=== PATIENT | male | born 1940 | race American Indian/Alaskan Native ===

== ENCOUNTER 2016-06-22 13:32 | Inpatient (IN) | payer OTHER, MEDICARE ==
[~2016-06-22] VITALS: Ht 188 cm; Wt 90.2 kg
[2016-06-22 16:00] VITALS: BP 148/94; PULSE 84; PULSE 86; RESP 20; TEMP 97.5; O2SAT 98
[2016-06-22 17:00] VITALS: PULSE 82
[2016-06-22] MEDS ORDERED: CHLORHEXIDINE GLUCONATE 4% SOLN 120 ML BTL TOPICAL SCH (17:00)
[2016-06-22] MEDS ORDERED: SODIUM CHLORIDE 0.9% FLUSH 5 ML FLUSH IV FLUSH PRN (17:00)
[2016-06-22] MEDS ORDERED: INSULIN REGULAR 100 UNITS in NS 100 ML IV SCH (17:00)
[2016-06-22 17:43] LABS: AUTOMATED NEUTROPHIL # 10.6 TH/MM3 (1.8-7.7); BASOPHIL % 0.2 % (0.0-2.0); EOSINOPHIL % 0.1 % (0.0-4.0); HEMO FLAGS DIFF FINAL; LYMPH % 4.4 % (9.0-44.0); LYMPHOCYTE # 0.5 TH/MM3 (1.0-4.8); MEAN CELL VOLUME 92.9 FL (80.0-100.0); MEAN CORPUSCULAR HGB CONC 33.4 % (32.0-36.0); MONO % 7.7 % (0.0-8.0); NEUT % 87.6 % (16.0-70.0); PLATELET COUNT 182 TH/MM3 (150-450); RED BLOOD COUNT 3.65 MIL/MM3 (4.50-5.90); RED CELL DISTRIBUTION WIDTH 13.8 % (11.6-17.2); WHITE BLOOD COUNT 12.1 TH/MM3 (4.0-11.0)
[2016-06-22 17:55] LABS: APTT (PATIENT) 23.7 SEC (24.3-30.1); PROTHROMBIN TIME - PATIENT 10.6 SEC (9.8-11.6)
[2016-06-22 18:00] VITALS: PULSE 85
[2016-06-22 18:06] LABS: ANION GAP 9 MEQ/L (5-15); BLOOD UREA NITROGEN 21 MG/DL (7-18); CHLORIDE 103 MEQ/L (98-107); GLOMERULAR FILTRATION RATE 58 ML/MIN (>89); POTASSIUM 4.1 MEQ/L (3.5-5.1); SODIUM (NA) 139 MEQ/L (136-145)
[2016-06-22 18:47] LABS: BLOOD, URINE NEG (NEG); COMMENT (UR) CULT NOT INDICATED; CULTURE IF INDICATED CULT NOT INDICATED; GLUCOSE,URINE 300 mg/dL (NEG); KETONE, URINE NEG (NEG); MUCUS URINE FEW /lpf (OCC); NITRITE,URINE NEG (NEG); URINE COLOR LIGHT-YELLOW (YELLW/STRAW)
[2016-06-22 19:00] VITALS: PULSE 77
[2016-06-22 21:15] VITALS: BP 122/66; PULSE 84; RESP 16; TEMP 98.1; O2SAT 97
--- NOTE | 2016-06-22 23:02 | RADRPT ---
EXAM DATE/TIME: 06/22/2016 18:58 [facility] COMPARISON: No previous studies available for comparison. INDICATIONS : Pre op cardiac surgery. MEDICAL HISTORY : Coronary artery disease. Peripheral vascular disease. Full medical history not available at this time . SURGICAL HISTORY : Multiple leg venous and arterial surgeries. ENCOUNTER: Initial ACUITY: 1 day PAIN SCORE: 0/10 LOCATION: Bilateral legs. TECHNIQUE: Venous ultrasound of the left and right leg was performed from the inguinal ligament to the proximal calf. Real-time, color Doppler and spectral tracing, compression and augmentation techniques were us ed. FINDINGS: RIGHT LEG: There is normal compressibility of the deep venous system from the inguinal region to the proximal ca lf. No echogenic clot is seen in the lumen of the common femoral, femoral, popliteal, and posterior tibial veins. There is a normal response of the venous system to proximal and distal augmentation an d respiration. LEFT LEG: There is normal compressibility of the deep venous system from the inguinal region to the proximal ca lf. No echogenic clot is seen in the lumen of the common femoral, femoral, popliteal, and posterior tibial veins. There is a normal response of the venous system to proximal and distal augmentation an d respiration. CONCLUSION: Normal examination. Gurpreet Velasquez MD on June 22, 2016 at 23:01 Board Certified Radiologist. This report was verified electronically.
--- NOTE | 2016-06-22 23:03 | RADRPT ---
EXAM DATE/TIME: 06/22/2016 19:14 [facility] COMPARISON: No previous studies available for comparison. INDICATIONS : Pre op cardiac surgery. MEDICAL HISTORY : Coronary artery disease. Peripheral vascular disease. Full medical history not available at this time . SURGICAL HISTORY : Multiple leg venous and arterial surgeries. ENCOUNTER: Initial ACUITY: 1 day PAIN SCORE: 0/10 LOCATION: Bilateral legs. GREATER SAPHENOUS VEIN THIGH: PROXIMAL: Right Non-visualized Left Non-visualized MID: Right Non-visualized Left Non-visualized DISTAL: Right Non-visualized Left Non-visualized CALF: PROXIMAL: Right Non-visualized Left Non-visualized MID: Right Non-visualized Left Non-visualized DISTAL: Right Non-visualized Left Non-visualized FINDINGS: The greater saphenous veins have been surgically removed bilaterally. CONCLUSION: 1. Surgical removal of the greater saphenous veins. Gurpreet Velasquez MD on June 22, 2016 at 23:01 Board Certified Radiologist. This report was verified electronically.
--- NOTE | 2016-06-22 23:04 | RADRPT ---
EXAM DATE/TIME: 06/22/2016 19:33 [facility] COMPARISON: No previous studies available for comparison. INDICATIONS : Pre op cardiac surgery. MEDICAL HISTORY : Coronary artery disease. Peripheral vascular disease. Full medical history not available at this time . SURGICAL HISTORY : Multiple leg venous and arterial surgeries. ENCOUNTER: Initial ACUITY: 1 day PAIN SCORE: 0/10 LOCATION: Bilateral neck PEAK SYSTOLIC VELOCITIES (cm/sec): ICA/CCA RATIO: Right: 1.5 Left: 1.2 ICA: Right: 81 Left: 89 CCA: Right: 61 Left: 75 ECA: Right: 201 Left: 110 VERTEBRAL: Right: 34 antegrade Left: 51 antegrade Elevated flow velocities and ICA/CCA ratios have been found to correlate with increased degrees of vessel stenosis, calculated as percentage of diameter relative to a normal segment of distal ICA/CCA FINDINGS: RIGHT CAROTID: No significant stenosis is visualized. The waveforms are within normal limits. LEFT CAROTID: No significant stenosis is visualized. The waveforms are within normal limits. VERTEBRAL ARTERIES: Antegrade flow is seen in both vertebral arteries. MISCELLANEOUS: None. CONCLUSION: 1. There is mild to moderate calcified plaque formation near the carotid bifurcations bilaterally. No hemodynamically significant stenosis is identified. Vertebral artery flow is antegrade bilaterally. Gurpreet Velasquez MD on June 22, 2016 at 23:02 Board Certified Radiologist. This report was verified electronically.
[2016-06-23] VITALS (21 sets, daily range): BP systolic 124–168; BP diastolic 72–86; PULSE 71–100; RESP 16–20; TEMP 97.3–98.1; O2SAT 95–99
[2016-06-23] MEDS ORDERED: LOSA100T PO (01:22)
[2016-06-23] MEDS ORDERED: PLAV75TA29 PO (01:22)
[2016-06-23] MEDS ORDERED: ZOLP5TAB3 PO (01:22)
[2016-06-23] MEDS ORDERED: ASPI81CH37 CHEW (01:22)
[2016-06-23] MEDS: MUPIROCIN 2% OINT 22 GM TUBE EACH NARE SCH ×2 (09:15→21:00)
[2016-06-23] MEDS: SODIUM CHLORIDE 0.9% FLUSH 5 ML FLUSH IV FLUSH SCH ×2 (09:15→21:27)
[2016-06-23 11:31] LABS: HEMOGLOBIN A1a 1.2 %; HEMOGLOBIN A1b 2.1 %; HEMOGLOBIN Ao 82.5 %; HEMOGLOBIN LA1C 2.4 %; HEMOGLOBIN P3 5.9 %
[2016-06-23] MEDS ORDERED: DIFLUPREDNATE RIGHT EYE SCH (13:00)
[2016-06-23] MEDS ORDERED: PILL SPLITTER OTHER PRN (13:15)
[2016-06-23] MEDS ORDERED: GLUCAGON 1 MG/ML VIAL OTHER PRN (13:45)
[2016-06-23] MEDS ORDERED: DEXTROSE 50% IN WATER 50 ML VIAL(D50) IV PUSH PRN (13:45)
[2016-06-23] MEDS: MOXIFLOXACIN 0.5% OPHT SOLN 3 ML BTL RIGHT EYE SCH ×3 (14:00→21:26)
--- NOTE | 2016-06-23 14:26 | MH ---
cc: NICOLE CHOWDHURY MD DATE OF ADMISSION: 06/22/2016 DATE OF : 1940 HISTORY OF PRESENT ILLNESS A 75-year-old male, patient of Dr. Nobles, who presented to [facility] with midsternal chest pain, non-radiating, associated with shortness of breath, no nausea or vomiting, off and on for about a week. He was ruled in for apparently a STEMI. They took him directly to the hospital laboratory technician per Dr. Patel showing some multivessel disease. The complete report is pending. The patient is currently pain free. He has significant risk factors including peripheral arterial disease, diabetes mellitus, hypertension and age. PAST MEDICAL HISTORY 1. COPD. 2. Diabetes, diet-controlled. 3. Peripheral arterial disease with multiple procedures. 4. Hyperlipidemia. 5. Hypertension. 6. Benign prostatic hypertrophy. 7. History of DVT. PAST SURGICAL HISTORY 1. Multiple peripheral surgeries, approximately seven, angioplasties, stents, initially by Dr. Rodriguez and then by Dr. Jaya Rondon. 2. First, second and fifth toe removed from the right foot. 3. Stents in his lower extremities. He has an extensive scar on his right thigh lower leg medially and also anteriorly. He uses a walker and a cane to ambulate. ALLERGIES The patient has no known allergies. MEDICATIONS 1. Symbicort b.i.d. 2. Durezol eye drops. 3. Vigamox eye drops. 4. Plavix 75; last dose yesterday morning. 5. Aspirin 81 mg daily. 6. Losartan 100 mg daily. FAMILY HISTORY Father from stomach cancer in his 40s. Mother from Alzheimer's in her 80s. SOCIAL HISTORY The patient is with two children. No alcohol. Smoked for approximately 40 years, 1-2 packs. No illicit drugs. REVIEW OF SYSTEMS GENERAL: No night sweats, fever, heat or cold intolerance. SKIN: No psoriasis, itching or hives. HEENT: No blurred vision or hearing loss. RESPIRATORY: Positive for cough that he has had off and on, he says for about a year, probable underlying chronic bronchitis. Occasional wheezing. CARDIOVASCULAR: As above in the HPI. GENITOURINARY: No burning, frequency, urgency. PREFLIGHT INSPECTOR: No history of TIA, CVA, seizure disorder. ENDOCRINE: Positive for diabetes. PHYSICAL EXAMINATION VITAL SIGNS: Blood pressure 150/70, heart rate 74, afebrile. GENERAL: Patient is awake, alert, in no acute distress. HEENT: Head is normocephalic, atraumatic. Pupils equal and reactive. Oral mucosa pink and moist. NECK: Supple. No JVD. HEART: Heart sounds S1, S2, regular rate and rhythm. No rubs, murmurs or gallops. LUNGS: End-expiratory wheeze. Few coarse breath sounds. ABDOMEN: Soft, nontender. No masses or organomegaly. EXTREMITIES: Partial amputation of the first, second and fifth toe from his right foot. I am able to get Doppler pulses on the left posterior tibial and dorsalis pedis. He does have Doppler pulses on the right, however, they are weaker than the left. LABORATORY DATA Hemoglobin 11, hematocrit 34, white cell count 12, platelet count 182. Sodium 139, potassium 4.1, BUN 21, creatinine 1.21. INR 1.0. Urinalysis is unremarkable. IMAGING DATA Carotid ultrasound: Mild to moderate plaque formation in the carotid bifurcations. No significant stenosis. No evidence of DVT in the lower extremities. Surgical of the greater saphenous vein grafts on his ultrasound venous mapping of both lower extremities. IMPRESSION AND PLAN 1. This is a 75-year-old male status post ST-segment [place], status post heart catheterization with multivessel disease, also with severe peripheral arterial disease. Will need to be evaluated for use of targets for bypass grafting. In the meantime will continue to hold his Plavix, hold his angiotensin receptor adarsh, review his medications and start statin once we are able to find out what he is able to take at home. Will consult physical therapy for bedside walker. 2. COPD with an underlying cough. Will check sputum for Gram stain, C&S. Add nebulizer treatment. 3. Diabetes mellitus. Will place the patient on a diabetic diet. He has, however, diet-controlled at home. 4. Hypertension. Will start low-dose beta adarsh and will continue to follow. 5. Further plan per Dr. Nicole Chowdhury. Dictated by: ADELE Baum Nicole MOTA /12:02 PM /1:26 PM
[2016-06-23] MEDS: RESP: ALBUTEROL 2.5 MG/IPRATROPIUM 0.5 MG NEB (SCH) NEB ×2 (14:41→21:12)
--- NOTE | 2016-06-23 16:39 | RADRPT ---
EXAM DATE/TIME: 06/23/2016 16:25 [facility] COMPARISON: No previous studies available for comparison. INDICATIONS : Evaluate for pneumonia, pneumothorax, or any communicable disease. Pre op cardiac surgery. MEDICAL HISTORY : Coronary artery disease. Peripheral vascular disease. SURGICAL HISTORY : None. ENCOUNTER: Initial ACUITY: 1 day PAIN SCORE: 0/10 LOCATION: Bilateral chest FINDINGS: The heart size is normal. There is minimal increased density at the right base. There are mild bilate ral pleural effusions. These are seen on the lateral view. The bony structures are unremarkable. CONCLUSION: Small effusions. Josh Issa MD on June 23, 2016 at 16:37 Board Certified Radiologist. This report was verified electronically.
[2016-06-23] MEDS: BUDESONIDE-FORMOTEROL 160/4.5 MCG INHALER INH SCH ×2 (17:00→21:26)
[2016-06-23] MEDS: METOPROLOL TARTRATE 25 MG TAB PO SCH ×2 (17:03→21:26)
[2016-06-23] MEDS: NITROGLYCERIN 2% OINT 1 GM PACKET TOPICAL SCH (17:04)
[2016-06-23] MEDS: INSULIN NovoLIN REGULAR SUPPLEMENTAL SCALE SQ SCH ×2 (17:04→20:39)
[2016-06-23] MEDS: ZOLPIDEM TARTRATE 5 MG TAB PO PRN (22:42)
[2016-06-24] VITALS (25 sets, daily range): BP systolic 142–168; BP diastolic 74–90; PULSE 65–94; RESP 18–20; TEMP 97.9–98.2; O2SAT 96–97
[2016-06-24] MEDS: NITROGLYCERIN 2% OINT 1 GM PACKET TOPICAL SCH ×4 (05:36→18:00)
[2016-06-24] MEDS: INSULIN NovoLIN REGULAR SUPPLEMENTAL SCALE SQ SCH ×4 (05:36→21:00)
[2016-06-24] MEDS: RESP: ALBUTEROL 2.5 MG/3 ML NEB (PRN) NEB (05:47)
[2016-06-24 06:30] LABS: P2Y12 REACTION UNITS (PRU) 166 PRU (194-418)
[2016-06-24] MEDS: RESP: ALBUTEROL 2.5 MG/IPRATROPIUM 0.5 MG NEB (SCH) NEB ×3 (08:00→20:08)
[2016-06-24] MEDS: BUDESONIDE-FORMOTEROL 160/4.5 MCG INHALER INH SCH ×2 (08:59→21:28)
[2016-06-24] MEDS: MOXIFLOXACIN 0.5% OPHT SOLN 3 ML BTL RIGHT EYE SCH ×4 (08:59→21:28)
[2016-06-24] MEDS: ASPIRIN EC 81 MG TABEC PO SCH (08:59)
[2016-06-24] MEDS: METOPROLOL TARTRATE 25 MG TAB PO SCH ×2 (08:59→21:29)
[2016-06-24] MEDS: SODIUM CHLORIDE 0.9% FLUSH 5 ML FLUSH IV FLUSH SCH ×3 (09:00→21:29)
[2016-06-24] MEDS: MUPIROCIN 2% OINT 22 GM TUBE EACH NARE SCH ×2 (09:00→21:29)
--- NOTE | 2016-06-24 09:08 | EC ---
Study Study Date:06/23/2016 STUDY CONCLUSIONS SUMMARY - Left ventricle: The cavity size was normal. Wall thickness was increased in a pattern of mild LVH. There was concentric hypertrophy. Systolic function was moderately reduced. The estimated ejection fraction was in the range of 40% to 45%. Akinesis of the anteroseptal myocardium. - Aortic valve: Mild regurgitation. - Tricuspid valve: Mild regurgitation. If LV function is below 40, please consider prescribing an ACEI or ARB or document rationale for non-use. PROCEDURE DATA STUDY STATUS: Elective. Procedure: Transthoracic echocardiography. Image quality was good. Scanning was performed from the parasternal, apical, and subcostal acoustic windows. Study completion: The patient tolerated the procedure well. Transthoracic echocardiography. M-mode, complete 2D, complete spectral Doppler, and color Doppler. Height: Height: 74in. Weight: Weight: 197.6lb. Body mass index: BMI: 25.4kg/m^2. Body surface area: BSA: 2.16m^2. Patient status: Inpatient. CARDIAC ANATOMY LEFT VENTRICLE: The cavity size was normal. Wall thickness was increased in a pattern of mild LVH. There was concentric hypertrophy. Systolic function was moderately reduced. The estimated ejection fraction was in the range of 40% to 45%. Regional wall motion abnormalities: Akinesis of the anteroseptal myocardium. AORTIC VALVE: Probably trileaflet. Doppler: There was no stenosis. Mild regurgitation. Valve area: 2.83cm^2 (Vmax). Indexed valve area: 1.31cm^2/m^2 (Vmax). MITRAL VALVE: Mildly calcified annulus. Doppler: There was no evidence for stenosis. No significant regurgitation. Valve area by pressure half-time: 3.86cm^2. Indexed valve area by pressure half-time: 1.79cm^2/m^2. Peak gradient: 5mm Hg (D). LEFT ATRIUM: The atrium was normal in size. RIGHT VENTRICLE: The cavity size was normal. PULMONIC VALVE: Not well visualized. TRICUSPID VALVE: The valve appears to be grossly normal. Doppler: There was no evidence for stenosis. Mild regurgitation. Peak gradient: 47mm Hg (D). PERICARDIUM: There was no pericardial effusion. Patient weight: 197.6lb _Ejection fraction:_ 65-75% _Fractional shortening:_ 32% up to 5Kg 5-11.5Kg 11.6-22.9Kg 23-45Kg 45-57Kg Aortic Root 7-13 <17 13-22 17-27 17-27 LA diam 6-13 <23 24-38 33-47 37-40 RVID 10-17 7-15 7-15 7-18 8-17 LVIDd 12-22 <32 24-38 33-47 37-40 LVPW 2-4 3-6 5-7 6-8 7-8 IVS 2-4 3-6 5-7 6-8 7-8 BASIC MEASUREMENTS ADULT NORMAL Left ventricle LV internal dimension, ED, chordal 45.7 mm 43-52 level, PLAX LV internal dimension, ES, chordal 35.5 mm 23-38 level, PLAX Fractional shortening, chordal level, *22 % >29 PLAX LV posterior wall thickness, ED 11.3 mm IVS/LVPW ratio, ED 1 <1.3 Volume, ED, MOD, 1-plane 98 ml Volume, ES, MOD, 1-plane 52 ml Ejection fraction, MOD, 1-plane 47 % Stroke volume, MOD, 1-plane 46 ml Volume index, ED, MOD, 1-plane 45 ml/m^2 Volume index, ES, MOD, 1-plane 24 ml/m^2 Stroke index, MOD, 1-plane 21.3 ml/m^2 Ventricular septum Septal thickness, ED 11.3 mm Aortic valve Leaflet separation 19 mm 15-26 Left atrium Anterior-posterior dimension 37 mm Anterior-posterior dimension index 1.71 cm/m^2 <2.2 BASIC MEASUREMENTS ADULT NORMAL Aortic valve Leaflet separation 19 mm 15-26 Aorta Root diameter, ED 36 mm 20-37 DOPPLER MEASUREMENTS ADULT NORMAL Aortic valve Peak velocity, S 110 cm/s Valve area, Vmax 2.83 cm^2 Valve area index, Vmax 1.31 cm^2/m^2 Regurgitant velocity, ED 418 cm/s Regurgitant deceleration 4280 cm/s^2 Regurgitant pressure half-time 286 ms Regurgitant gradient, ED 70 mm Hg Mitral valve Peak E-wave velocity 110 cm/s Peak A-wave velocity 81.9 cm/s Pressure half-time 57 ms Peak gradient, D 5 mm Hg Peak E/A ratio 1.3 Valve area, pressure half-time 3.86 cm^2 Valve area index, pressure half-time 1.79 cm^2/m^2 Tricuspid valve Peak gradient, D 47 mm Hg Maximal inflow velocity 296 cm/s Systemic veins Estimated CVP 10 mm Hg Pulmonic valve Peak velocity, S 95 cm/s LEGEND: Mean values are shown as u=mean value. Asterisk (*) taylor values outside specified normal range. Prepared and signed by Rock Leal [id number]
--- NOTE | 2016-06-24 10:00 | PD.CAR.PN ---
CVT Progress Note Subjective/Hospital Course: 75/ male NSTEMI transferred from [facility] / multi vessel disease EF 40 % , Last dose of Plavix 06/22 PRU this am 166. For surgery Th or Thursday . Pt has hx severe PAD multi stents, vascular surgery ( including fem-pop bypass) amputation of right 1,2, 5 toes ( seen by Dr Rondon in past) no conduit in lower ext for grafting has chronic cough past 6-12 months, on inhalers at home PMH : severe PAD, HLP, HTN, recent cataract surgery, DM Type 11 diet controlled , CKD stage 11, COPD( FEV1 1.03) insomnia , chronic anemia 06/24 on ASA, BB , stain , nitro ECHO noted EF 40% mild MR AI, TR remain s chest pain free Objective: GENERAL: SKIN: Warm and dry. HEAD: Normocephalic. EYES: No scleral icterus. No injection or drainage. NECK: Supple, trachea midline. No JVD or lymphadenopathy. CARDIOVASCULAR: Regular rate and rhythm without murmurs, gallops, or rubs. doppler pulse both feet, left> right RESPIRATORY: few coarse breath sound, faint wheeze Breath sounds equal bilaterally. No accessory muscle use. GASTROINTESTINAL: Abdomen soft, non-tender, nondistended. MUSCULOSKELETAL: No cyanosis, or edema. BACK: Nontender without obvious deformity. No CVA tenderness. Vital Signs Date Time Temp Pulse Resp B/P Pulse Ox O2 Delivery O2 Flow Rate FiO2 06/24/16 08:00 97.9 85 20 154/90 97 06/24/16 07:00 73 06/24/16 06:00 70 06/24/16 05:00 72 06/24/16 04:00 97.9 82 18 154/85 96 06/24/16 04:00 68 06/24/16 03:00 72 06/24/16 02:00 76 06/24/16 01:00 72 06/24/16 00:00 98.1 78 18 145/89 96 06/24/16 00:00 65 06/23/16 23:00 76 06/23/16 22:00 72 06/23/16 21:14 98 21 06/23/16 21:00 72 06/23/16 20:00 97.7 77 20 144/83 96 06/23/16 20:00 71 06/23/16 19:00 74 06/23/16 18:00 94 06/23/16 17:00 82 06/23/16 16:00 82 06/23/16 15:00 87 06/23/16 15:00 97.3 83 20 168/86 99 06/23/16 14:45 97 Nasal Cannula 2.00 06/23/16 14:00 100 06/23/16 13:00 82 06/23/16 12:00 84 06/23/16 11:00 97.4 85 20 156/81 97 06/23/16 11:00 89 06/23/16 10:00 78 Labs: Laboratory Tests Test 06/24/16 05:30 Platelet Function P2Y12 React 166 PRU Units ([id number]) Result Diagram: 06/22/16 1726 06/22/16 1726 Telemetry: NSR (1) Coronary artery disease (2) NSTEMI (non-ST elevated myocardial infarction) Plan: ASA, statin , BB , nitro (3) COPD (chronic obstructive pulmonary disease) Plan: on symbicort , nebs , ezpap (4) Diabetes mellitus Plan: on diabetic diet , insulin sliding scale , HGB A1C 6.8 (5) PVD (peripheral vascular disease) Plan: on ASA, will need to resume plavix after surgery (6) Hyperlipemia Plan: on statin (7) Hypertension Plan: controlled, on BB , may need to add home cardizem (8) CKD (chronic kidney disease), stage II Plan: monitor closely, avoid nephrotoxins Lauren Juarez Jun 24, 2016 10:00
[2016-06-24] MEDS ORDERED: PRAV40TA2 PO (10:14)
[2016-06-24] MEDS ORDERED: DIFL0.0512 RIGHT EYE (10:14)
[2016-06-24] MEDS ORDERED: FLUT1SPR22 (10:14)
[2016-06-24] MEDS ORDERED: IPRASOL INH (10:14)
[2016-06-24] MEDS ORDERED: FERR325T PO (10:14)
[2016-06-24] MEDS ORDERED: SYMB160A INH (10:14)
[2016-06-24] MEDS ORDERED: TEMA30CA PO (10:14)
[2016-06-24] MEDS ORDERED: VENTAER INH (10:14)
[2016-06-24] MEDS ORDERED: HYDR-3516 PO (10:14)
[2016-06-24] MEDS ORDERED: VIGA0.5D RIGHT EYE (10:14)
[2016-06-24] MEDS ORDERED: STOO100C (10:14)
[2016-06-24] MEDS ORDERED: TRAZ100T5 PO (10:14)
[2016-06-24] MEDS ORDERED: ALBU0.08 NEB (10:14)
[2016-06-24] MEDS ORDERED: DILT-64 PO (10:14)
[2016-06-24] MEDS ORDERED: FAMO40TA PO (10:14)
[2016-06-24] MEDS: DIFLUPREDNATE RIGHT EYE SCH ×2 (14:00→21:29)
--- NOTE | 2016-06-24 14:40 | PD.CAR.PN ---
CVT Progress Note Subjective/Hospital Course: 75/ male NSTEMI transferred from [facility] / multi vessel disease EF 40 % , Last dose of Plavix 06/22 PRU this am 166. For surgery or Thursday . Pt has hx severe PAD multi stents, vascular surgery ( including fem-pop bypass) amputation of right 1,2, 5 toes ( seen by Dr Rondon in past) no conduit in lower ext for grafting has chronic cough past 6-12 months, on inhalers at home PMH : severe PAD, HLP, HTN, recent cataract surgery, DM Type 11 diet controlled , CKD stage 11, COPD( FEV1 1.03) insomnia , chronic anemia 06/24 on ASA, BB , stain , nitro ECHO noted EF 40% mild MR AI, TR remain s chest pain free sts data discussed with pt RISK SCORES About the STS Risk Calculator Procedure: CAB Only Risk of Mortality: 3.736% Morbidity or Mortality: 24.964% Long Length of Stay: 12.931% Short Length of Stay: 25.562% Permanent Stroke: 1.254% Prolonged Ventilation: 16.348% DSW Infection: 1.231% Renal Failure: 7.144% Reoperation: 8.4% Objective: Vital Signs Date Time Temp Pulse Resp B/P Pulse Ox O2 Delivery O2 Flow Rate FiO2 06/24/16 11:00 79 06/24/16 10:00 76 06/24/16 09:00 86 06/24/16 08:00 97.9 85 20 154/90 97 06/24/16 08:00 84 06/24/16 07:00 73 06/24/16 06:00 70 06/24/16 05:00 72 06/24/16 04:00 97.9 82 18 154/85 96 06/24/16 04:00 68 06/24/16 03:00 72 06/24/16 02:00 76 06/24/16 01:00 72 06/24/16 00:00 98.1 78 18 145/89 96 06/24/16 00:00 65 06/23/16 23:00 76 06/23/16 22:00 72 06/23/16 21:14 98 21 06/23/16 21:00 72 06/23/16 20:00 97.7 77 20 144/83 96 06/23/16 20:00 71 06/23/16 19:00 74 06/23/16 18:00 94 06/23/16 17:00 82 06/23/16 16:00 82 06/23/16 15:00 87 06/23/16 15:00 97.3 83 20 168/86 99 06/23/16 14:45 97 Nasal Cannula 2.00 Labs: Laboratory Tests Test 06/24/16 05:30 Platelet Function P2Y12 React 166 PRU Units ([id number]) Result Diagram: 06/22/16 1726 06/22/16 1726 (1) Coronary artery disease (2) NSTEMI (non-ST elevated myocardial infarction) Plan: ASA, statin , BB , nitro (3) COPD (chronic obstructive pulmonary disease) Plan: on symbicort , nebs , ezpap (4) Diabetes mellitus Plan: on diabetic diet , insulin sliding scale , HGB A1C 6.8 (5) PVD (peripheral vascular disease) Plan: on ASA, will need to resume plavix after surgery (6) Hyperlipemia Plan: on statin (7) Hypertension Plan: controlled, on BB , may need to add home cardizem (8) CKD (chronic kidney disease), stage II Plan: monitor closely, avoid nephrotoxins Lauren Juarez Jun 24, 2016 14:40
[2016-06-24] MEDS ORDERED: ceFAZolin 2 GM PREMIX 50 ML IV SCH (15:00)
[2016-06-24] MEDS ORDERED: METOPROLOL TARTRATE 25 MG TAB PO SCH (15:00)
[2016-06-24] MEDS ORDERED: CHLORHEXIDINE GLUCONATE 4% SOLN 120 ML BTL TOPICAL SCH (15:00)
[2016-06-24] MEDS ORDERED: CEFAZOLIN INJ 500 MG in SODIUM CHLORIDE 0.9% IRR BTL 500 ML IRRIGATION SCH (15:00)
[2016-06-24] MEDS ORDERED: SODIUM CHLORIDE 0.9% FLUSH 5 ML FLUSH IV FLUSH PRN (15:00)
[2016-06-24] MEDS ORDERED: PAPAVERINE INJ 60 MG, NITROGLYCERIN INJ 100 MCG, DILTIAZEM INJ 100 MG in SODIUM CHLORID... IRRIGATION SCH (15:00)
--- NOTE | 2016-06-24 15:25 | EKG ---
Date Performed: 06/23/2016 Time Performed: 14:05:06 PTAGE: 75 years EKG: Likely Sinus rhythm with very heavy baseline artifact preclude more precise rhythm diagnosis. Would recommend a repeat E KG could conclude atrial fibrillaion or atrial flutter. Abnormal ECG NO PREVIOUS TRACING DOCTOR: Howie Parisi Interpretating Date/Time 06/24/2016 15:24:20
[2016-06-24] MEDS ORDERED: DIFLUPREDNATE RIGHT EYE SCH (21:00)
[2016-06-24] MEDS: PRAVASTATIN SOD 40 MG TAB PO SCH (21:29)
[2016-06-24] MEDS: traZODone HCL 100 MG TAB PO SCH (21:29)
[2016-06-24] MEDS: ZOLPIDEM TARTRATE 5 MG TAB PO PRN (22:18)
[2016-06-25] VITALS (26 sets, daily range): BP systolic 123–150; BP diastolic 65–83; PULSE 59–96; RESP 18; TEMP 97.3–98.5; O2SAT 94–97
[2016-06-25] MEDS: INSULIN NovoLIN REGULAR SUPPLEMENTAL SCALE SQ SCH ×4 (05:55→21:00)
[2016-06-25] MEDS: NITROGLYCERIN 2% OINT 1 GM PACKET TOPICAL SCH ×4 (05:56→18:06)
[2016-06-25] MEDS: RESP: ALBUTEROL 2.5 MG/IPRATROPIUM 0.5 MG NEB (SCH) NEB ×3 (07:25→20:47)
[2016-06-25] MEDS: SODIUM CHLORIDE 0.9% FLUSH 5 ML FLUSH IV FLUSH SCH ×4 (09:00→21:50)
[2016-06-25] MEDS: MUPIROCIN 2% OINT 22 GM TUBE EACH NARE SCH ×2 (09:03→21:49)
[2016-06-25] MEDS: FERROUS SULFATE 325 MG (65 MG ELEMENTAL IRON) TAB PO SCH (09:03)
[2016-06-25] MEDS: MOXIFLOXACIN 0.5% OPHT SOLN 3 ML BTL RIGHT EYE SCH ×4 (09:04→21:46)
[2016-06-25] MEDS: BUDESONIDE-FORMOTEROL 160/4.5 MCG INHALER INH SCH ×2 (09:04→21:46)
[2016-06-25] MEDS: ASPIRIN EC 81 MG TABEC PO SCH (09:04)
[2016-06-25] MEDS: DIFLUPREDNATE RIGHT EYE SCH ×2 (09:05→21:46)
[2016-06-25] MEDS: METOPROLOL TARTRATE 25 MG TAB PO SCH ×2 (09:10→21:45)
--- NOTE | 2016-06-25 13:06 | PD.CAR.PN ---
CVT Progress Note Subjective/Hospital Course: 75/ male NSTEMI transferred from [facility] / multi vessel disease EF 40 % , Last dose of Plavix 06/22 PRU this am 166. For surgery or Thursday . Pt has hx severe PAD multi stents, vascular surgery ( including fem-pop bypass) amputation of right 1,2, 5 toes ( seen by Dr Rondon in past) no conduit in lower ext for grafting has chronic cough past 6-12 months, on inhalers at home PMH : severe PAD, HLP, HTN, recent cataract surgery, DM Type 11 diet controlled , CKD stage 11, COPD( FEV1 1.03) insomnia , chronic anemia 06/24 on ASA, BB , stain , nitro ECHO noted EF 40% mild MR AI, TR remain s chest pain free 06/25 pt remains pain free await PRU in am tentatively scheduled for surgery on Thursday Objective: GENERAL: SKIN: Warm and dry. HEAD: Normocephalic. EYES: No scleral icterus. No injection or drainage. NECK: Supple, trachea midline. No JVD or lymphadenopathy. CARDIOVASCULAR: Regular rate and rhythm without murmurs, gallops, or rubs. RESPIRATORY: Breath sounds equal bilaterally. No accessory muscle use. GASTROINTESTINAL: Abdomen soft, non-tender, nondistended. MUSCULOSKELETAL: No cyanosis, or edema. BACK: Nontender without obvious deformity. No CVA tenderness. Vital Signs Date Time Temp Pulse Resp B/P Pulse Ox O2 Delivery O2 Flow Rate FiO2 06/25/16 12:00 72 06/25/16 11:00 70 06/25/16 11:00 98.0 71 18 125/65 94 06/25/16 10:00 77 06/25/16 09:00 87 06/25/16 08:00 82 06/25/16 07:15 68 06/25/16 07:00 97.4 82 18 150/74 96 06/25/16 06:00 71 06/25/16 05:00 71 06/25/16 04:00 77 06/25/16 04:00 98.0 66 18 123/83 97 06/25/16 03:00 71 06/25/16 02:00 71 06/25/16 01:00 70 06/25/16 00:00 74 06/25/16 00:00 98.2 59 18 129/66 97 06/24/16 23:00 66 06/24/16 22:00 74 06/24/16 21:00 94 06/24/16 20:08 97 21 06/24/16 20:00 98.0 86 20 168/90 96 06/24/16 20:00 82 06/24/16 19:00 84 06/24/16 18:00 81 06/24/16 17:00 80 06/24/16 16:00 89 06/24/16 15:00 82 06/24/16 15:00 98.2 86 20 144/79 96 06/24/16 14:00 70 Result Diagram: 06/22/16 1726 06/22/16 172 Telemetry: NSR (1) Coronary artery disease Plan: for surgery on Thursday (2) NSTEMI (non-ST elevated myocardial infarction) Plan: ASA, statin , BB , nitro (3) COPD (chronic obstructive pulmonary disease) Plan: on symbicort , nebs , ezpap (4) Diabetes mellitus Plan: on diabetic diet , insulin sliding scale , HGB A1C 6.8 (5) PVD (peripheral vascular disease) Plan: on ASA, will need to resume plavix after surgery (6) Hyperlipemia Plan: on statin (7) Hypertension Plan: controlled, on BB , may need to add home cardizem (8) CKD (chronic kidney disease), stage II Plan: monitor closely, avoid nephrotoxins Lauren Juarez Jun 25, 2016 13:06
--- NOTE | 2016-06-25 19:59 | EKG ---
Date Performed: 06/24/2016 Time Performed: 21:47:30 PTAGE: 75 years EKG: Sinus rhythm with borderline 1st degree A-V block Possible septal infarct - age undetermined Possible left ventri cular hypertrophy Lateral ST-T changes Abnormal ECG PREVIOUS TRACING : 06/23/2016 14.05 Compared to prior tracing no significant change DOCTOR: Sneha Banks Interpretating Date/Time 06/25/2016 19:58:33
--- NOTE | 2016-06-25 20:14 | PD.ID.CON ---
History of Present Illness Service ID Consult Requested By Dr.Sohit Gan Reason for Consult Evaluation and Mment of pseudomonas in sputum ? tracheobronchitis. 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 Patient presented to [facility] with midsternal chest pain, non-radiating, associated with shortness of breath, no nausea or vomiting, off and on for about a week. He was ruled in for apparently a STEMI. Patient underwent a cardiac cath which showed with multivessel disease. Patient is currently being considered for CABG but due to his persistent cough a sputum was sent and grew Pseudomonas aeruginosa. ID is consulted to help evaluate and manage this. Patient reports he has had chronic cough with varying colors and amount of sputum over last few weeks. He was prescribed a Zpack by PCP with no response. He has been on Bactrim off and on in past but never Levaquin per daughter and patient in room. No fevers No chills Cough with yellowish pulido expectoration. No hemoptysis No h.o TB No occupational exposures. No family h/o lung diseases or TB. Review of Systems ROS Limitations: Poor Historian Past Family Social History Allergies: Coded Allergies: No Known Allergies (Unverified , 06/23/16) Past Medical History 1. COPD. 2. Diabetes, diet-controlled. 3. Peripheral arterial disease with multiple procedures. 4. Hyperlipidemia. 5. Hypertension. 6. Benign prostatic hypertrophy. 7. History of DVT. Past Surgical History 1. Multiple peripheral surgeries, approximately seven, angioplasties, stents, initially by Dr. Rodriguez and then by Dr. Jaya Rondon. 2. First, second and fifth toe removed from the right foot. 3. Stents in his lower extremities. He has an extensive scar on his right thigh lower leg medially and also anteriorly. He uses a walker and a cane to ambulate. Reported Medications Reported Meds & Active Scripts Active Reported Hydrocodone-Acetaminophen 5-325 mg Tab 1 Tab PO Q6H PRN Allergy Nasal Guy 24 Ho (Fluticasone Propionate (Nasal)) 50 Mcg/Act Spr 1 Guy NA DAILY Ferrous Sulfate 325 Mg Tab 325 Mg PO DAILY Famotidine 40 Mg Tab 40 Mg PO DAILY Diltiazem CD 24 HR 240 Mg Caper 240 Mg PO DAILY Albuterol Neb (Albuterol Sulfate) 2.5 Mg/3 Ml Neb 2.5 Mg NEB BID PRN Durezol Opth (Difluprednate Opth) 0.05% Emul 1 Drop RIGHT EYE BID Vigamox Opth Drops (Moxifloxacin Opth Drops) 0.5 % Soln 1 Drop RIGHT EYE BID Trazodone HCl 100 Mg Tab Tab PO HS PRN Pravastatin 40 Mg Tab 40 Mg PO DAILY Symbicort Inh (Budesonide/Formoterol Fumarate) 160-4.5 Mcg/Act Aero 2 Puff INH Q12HR Stool Softener (Docusate Sodium) 100 Mg Cap Duoneb (Ipratropium-Albuterol Neb) 0.5-2.5 Mg/3 Ml Neb 1 Nebule INH Q6HR NEB PRN Ventolin Hfa 18 GM Inh (Albuterol Sulfate) 90 Mcg/Act Aer 2 Puff INH TID Temazepam 30 Mg Cap 30 Mg PO HS PRN Plavix (Clopidogrel Bisulfate) 75 Mg Tab 75 Mg PO DAILY Zolpidem (Zolpidem Tartrate) 5 Mg Tab 5 Mg PO HS PRN Losartan (Losartan Potassium) 100 Mg Tab 100 Mg PO DAILY Aspirin Low Dose (Aspirin) 81 Mg Chew 81 Mg CHEW DAILY Active Ordered Medications Current Medications Medications (Trade) Dose Ordered Sig/Karolyn Route Start Time Stop Time Status Last Admin (NS Flush) 2 ml BID IV FLUSH 06/22/16 21:00 06/25/16 09:04 (NS Flush) 2 ml UNSCH PRN IV FLUSH 06/22/16 17:00 (Bactroban 2% Oint) 1 applic BID EACH NARE 06/22/16 21:00 06/26/16 20:59 06/25/16 09:03 (Symbicort 160-4.5 Inh) 2 puff Q12HR INH 06/23/16 14:00 06/25/16 09:04 (Vigamox 0.5% Opht Soln) 1 drop QID RIGHT EYE 06/23/16 14:00 06/25/16 18:06 (Ecotrin Ec) 81 mg DAILY PO 06/24/16 09:00 06/25/16 09:04 (Pill Splitter) 1 ea UNSCH PRN OTHER 06/23/16 13:15 (Nitroglycerin 2% Oint) 0.5 inch Q6HR TOPICAL 06/23/16 18:00 06/25/16 18:06 (Ambien) 5 mg HS PRN PO 06/23/16 13:45 06/24/16 22:18 (D50w (Vial) Inj) 25 ml UNSCH PRN IV PUSH 06/23/16 13:45 (Glucagon Inj) 1 mg UNSCH PRN OTHER 06/23/16 13:45 (Lopressor) 25 mg Q12HR PO 06/24/16 09:00 06/25/16 09:10 (Pravachol) 40 mg HS PO 06/24/16 21:00 06/24/16 21:29 (Desyrel) 100 mg HS PO 06/24/16 21:00 06/24/16 21:29 (Ferrous Sulfate) 325 mg DAILY PO 06/25/16 09:00 06/25/16 09:03 Patient Own Medication PT OWN MED: DUREZOL (DIFLUPREDNA... BID RIGHT EYE 06/24/16 14:00 06/25/16 09:05 (NS Flush) 2 ml BID IV FLUSH 06/24/16 21:00 (NS Flush) 2 ml UNSCH PRN IV FLUSH 06/24/16 15:00 Family History reviewed and NC to current ID problems. Social History The patient is with two children. No alcohol. Smoked for 40 plus years, 1-2 packs. No illicit drugs. 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 Physical Exam Vital Signs Vital Signs Date Time Temp Pulse Resp B/P Pulse Ox O2 Delivery O2 Flow Rate FiO2 06/25/16 18:00 91 06/25/16 17:00 80 06/25/16 16:00 79 06/25/16 15:00 97.3 77 18 142/74 97 06/25/16 15:00 78 06/25/16 14:00 77 06/25/16 13:00 75 06/25/16 12:00 72 06/25/16 11:00 70 06/25/16 11:00 98.0 71 18 125/65 94 06/25/16 10:00 77 06/25/16 09:00 87 06/25/16 08:00 82 06/25/16 07:15 68 06/25/16 07:00 97.4 82 18 150/74 96 06/25/16 06:00 71 06/25/16 05:00 71 06/25/16 04:00 77 06/25/16 04:00 98.0 66 18 123/83 97 06/25/16 03:00 71 06/25/16 02:00 71 06/25/16 01:00 70 06/25/16 00:00 74 06/25/16 00:00 98.2 59 18 129/66 97 06/24/16 23:00 66 06/24/16 22:00 74 06/24/16 21:00 94 Physical Exam GENERAL: This is a well-nourished, well-developed patient, in no apparent distress. SKIN: No rashes, ecchymoses or lesions. Cool and dry. HEAD: Atraumatic. Normocephalic. No temporal or scalp tenderness. EYES: Pupils equal round and reactive. Extraocular motions intact. No scleral icterus. No injection or drainage. ENT: Nose without bleeding, purulent drainage or septal hematoma. Throat without erythema, tonsillar hypertrophy or exudate. Uvula midline. Airway patent. NECK: Trachea midline. Supple, nontender, no meningeal signs. CARDIOVASCULAR: HS audible. RRR RESPIRATORY: Clear to auscultation. Breath sounds equal bilaterally. GASTROINTESTINAL: Abdomen soft, non-tender, nondistended. MUSCULOSKELETAL: Right great, 2nd and 3rd,5th toe s/p amputation with no active signs of infection. NEUROLOGICAL: Awake and alert. Grossly non focal Psych:cooperative IV line sites with no e.o infection. Laboratory Laboratory Tests Test 06/25/16 13:48 Procalcitonin LESS THAN 0.05 Date/Time Procedure Status Source Growth 06/23/16 23:15 Gram Stain - Final Resulted Sputum Expectorated Sputum 06/23/16 23:15 Sputum Culture - Preliminary Resulted Pseudomonas Aeruginosa Result Diagram: 06/22/16 1726 06/22/16 1726 Imaging Last Impressions Chest X-Ray 06/23/16 0000 Signed Impressions: Service Date/Time: Thursday, June 23, 2016 16:25 - CONCLUSION: Small effusions. Josh Issa MD Lower Extremity Ultrasound 06/22/16 0000 Signed Impressions: Service Date/Time: Wednesday, June 22, 2016 19:14 - CONCLUSION: 1. Surgical removal of the greater saphenous veins. Gurpreet Velasquez MD Carotid Artery Ultrasound 06/22/16 0000 Signed Impressions: Service Date/Time: Wednesday, June 22, 2016 19:33 - CONCLUSION: 1. There is mild to moderate calcified plaque formation near the carotid bifurcations bilaterally. No hemodynamically significant stenosis is identified. Vertebral artery flow is antegrade bilaterally. Gurpreet Velasquez MD Assessment and Plan Assessment and Plan Pseudomonas aeruginosa in sputum ? tracheobronchitis. Susceptibility pending. 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 PAD ST segment [place] s/p cardiac cath with multivessel disease. COPD stable. DM uncontrolled. HTN Recs: Start Levaquin oral will treat a short 3-5 day based on clinical response. Start Tobramycin nebulizations Check LFTs Procalcitonin low normal mild infection if at all. Follow cultures Follow clinically. Explained to patient that the treatment is in an attempt to reduce perioperative Vent associated pneumonias. I also explained that despite treating sometimes infections can occur but by treating we are reducing the organism burden and hence his chances of Pneumonia perioperatively. He reports he has recd Pneumococcal and Flu vaccine at [facility] in past. d/w RN d.w patients daughter and patient. Chetna Madera MD Jun 25, 2016 20:14 He reports he has recd Pneumococcal and Flu vaccine at [facility] in past. d/w RN d.w patients daughter and patient. Chetna Madera MD Jun 25, 2016 20:14
[2016-06-25] MEDS: PRAVASTATIN SOD 40 MG TAB PO SCH (21:45)
[2016-06-25] MEDS: traZODone HCL 100 MG TAB PO SCH (21:45)
[2016-06-25] MEDS: LEVOFLOXACIN 500 MG TAB PO SCH (21:49)
[2016-06-26] VITALS (27 sets, daily range): BP systolic 112–143; BP diastolic 58–85; PULSE 67–91; RESP 18–20; TEMP 97.6–98.5; O2SAT 96–99
[2016-06-26] MEDS: RESP: TOBRAMYCIN SULFATE 80 MG/2 ML NEB NEB SCH ×3 (00:07→19:19)
[2016-06-26] MEDS: ZOLPIDEM TARTRATE 5 MG TAB PO PRN (00:09)
[2016-06-26] MEDS: NITROGLYCERIN 2% OINT 1 GM PACKET TOPICAL SCH ×4 (05:22→17:20)
[2016-06-26] MEDS: INSULIN NovoLIN REGULAR SUPPLEMENTAL SCALE SQ SCH ×3 (05:23→16:00)
[2016-06-26 07:19] LABS: AUTOMATED NEUTROPHIL # 5.7 TH/MM3 (1.8-7.7); BASOPHIL % 0.6 % (0.0-2.0); EOSINOPHIL # 0.2 TH/MM3 (0-0.4); EOSINOPHIL % 2.7 % (0.0-4.0); HEMATOCRIT 33.8 % (39.0-51.0); HEMO FLAGS DIFF FINAL; LYMPH % 9.3 % (9.0-44.0); LYMPHOCYTE # 0.7 TH/MM3 (1.0-4.8); MEAN CELL VOLUME 91.4 FL (80.0-100.0); MEAN CORPUSCULAR HEMOGLOBIN 30.5 PG (27.0-34.0); MEAN CORPUSCULAR HGB CONC 33.4 % (32.0-36.0); MONO % 11.4 % (0.0-8.0); PLATELET COUNT 180 TH/MM3 (150-450); RED CELL DISTRIBUTION WIDTH 13.5 % (11.6-17.2); WHITE BLOOD COUNT 7.5 TH/MM3 (4.0-11.0)
[2016-06-26 07:30] LABS: P2Y12 REACTION UNITS (PRU) 228 PRU (194-418)
[2016-06-26 07:39] LABS: POTASSIUM 4.1 MEQ/L (3.5-5.1)
[2016-06-26 07:41] LABS: INDIRECT BILIRUBIN 0.5 MG/DL (0.0-0.8); TOTAL BILIRUBIN ADULT 0.7 MG/DL (0.2-1.0)
[2016-06-26] MEDS: RESP: ALBUTEROL 2.5 MG/IPRATROPIUM 0.5 MG NEB (SCH) NEB ×3 (07:58→19:19)
[2016-06-26] MEDS: SODIUM CHLORIDE 0.9% FLUSH 5 ML FLUSH IV FLUSH SCH ×3 (09:00→21:00)
[2016-06-26] MEDS: MUPIROCIN 2% OINT 22 GM TUBE EACH NARE SCH (09:08)
[2016-06-26] MEDS: FERROUS SULFATE 325 MG (65 MG ELEMENTAL IRON) TAB PO SCH (09:09)
[2016-06-26] MEDS: LEVOFLOXACIN 500 MG TAB PO SCH (09:09)
[2016-06-26] MEDS: METOPROLOL TARTRATE 25 MG TAB PO SCH (09:09)
[2016-06-26] MEDS: ASPIRIN EC 81 MG TABEC PO SCH (09:09)
[2016-06-26] MEDS: BUDESONIDE-FORMOTEROL 160/4.5 MCG INHALER INH SCH (09:10)
[2016-06-26] MEDS: MOXIFLOXACIN 0.5% OPHT SOLN 3 ML BTL RIGHT EYE SCH ×4 (09:11→21:00)
[2016-06-26] MEDS: DIFLUPREDNATE RIGHT EYE SCH ×2 (09:11→21:00)
--- NOTE | 2016-06-26 09:19 | RADRPT ---
EXAM DATE/TIME: 06/26/2016 08:55 [place] COMPARISON: No previous studies available for comparison. INDICATIONS : Evaluate for pneumonia, pneumothorax, and communicable disease. MEDICAL HISTORY : Coronary artery disease. SURGICAL HISTORY : None. ENCOUNTER: Subsequent ACUITY: 4 - 6 days PAIN SCORE: 0/10 LOCATION: Bilateral chest FINDINGS: The heart size is normal. There is mild increased density at the right base. The left lung is clear. No effusion is seen. CONCLUSION: Mild atelectasis or consolidation at the right base. Josh Issa MD on June 26, 2016 at 9:17 Board Certified Radiologist. This report was verified electronically.
--- NOTE | 2016-06-26 10:36 | PD.CAR.PN ---
CVT Progress Note Subjective/Hospital Course: 75/ male NSTEMI transferred from [facility] / multi vessel disease EF 40 % , Last dose of Plavix 06/22 PRU this am 166. For surgery or Thursday . 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 HEAD: Normocephalic. EYES: No scleral icterus. No injection or drainage. NECK: Supple, trachea midline. No JVD or lymphadenopathy. CARDIOVASCULAR: Regular rate and rhythm without murmurs, gallops, or rubs. RESPIRATORY: Breath sounds equal bilaterally. No accessory muscle use. lung sounds clear bilaterally GASTROINTESTINAL: Abdomen soft, non-tender, nondistended. MUSCULOSKELETAL: No cyanosis, or edema. BACK: Nontender without obvious deformity. No CVA tenderness. Vital Signs Date Time Temp Pulse Resp B/P Pulse Ox O2 Delivery O2 Flow Rate FiO2 06/26/16 10:00 77 06/26/16 09:00 82 06/26/16 08:00 86 06/26/16 07:59 98 21 06/26/16 07:00 67 06/26/16 07:00 97.9 77 20 129/85 96 06/26/16 06:00 88 06/26/16 05:00 85 06/26/16 04:00 86 06/26/16 04:00 98.5 82 18 137/74 97 06/26/16 03:00 83 06/26/16 02:00 86 06/26/16 01:00 84 06/26/16 00:08 97 06/26/16 00:00 82 06/26/16 00:00 98.1 88 18 132/72 97 06/25/16 23:00 84 06/25/16 22:00 96 06/25/16 21:00 86 06/25/16 20:47 96 21 06/25/16 20:00 98.5 94 18 136/75 97 06/25/16 20:00 91 06/25/16 19:00 84 06/25/16 18:00 91 06/25/16 17:00 80 06/25/16 16:00 79 06/25/16 15:00 97.3 77 18 142/74 97 06/25/16 15:00 78 06/25/16 14:00 77 06/25/16 13:00 75 06/25/16 12:00 72 06/25/16 11:00 70 06/25/16 11:00 98.0 71 18 125/65 94 Labs: Laboratory Tests Test 06/26/16 06/26/16 06:50 08:16 White Blood Count 7.5 TH/MM3 (4.0-11.0) Red Blood Count 3.70 MIL/MM3 (4.50-5.90) Hemoglobin 11.3 GM/DL (13.0-17.0) Hematocrit 33.8 % (39.0-51.0) Mean Corpuscular Volume 91.4 FL (80.0-100.0) Mean Corpuscular Hemoglobin 30.5 PG (27.0-34.0) Mean Corpuscular Hemoglobin 33.4 % Concent (32.0-36.0) Red Cell Distribution Width 13.5 % (11.6-17.2) Platelet Count 180 TH/MM3 (150-450) Mean Platelet Volume 7.8 FL (7.0-11.0) Neutrophils (%) (Auto) 76.0 % (16.0-70.0) Lymphocytes (%) (Auto) 9.3 % (9.0-44.0) Monocytes (%) (Auto) 11.4 % (0.0-8.0) Eosinophils (%) (Auto) 2.7 % (0.0-4.0) Basophils (%) (Auto) 0.6 % (0.0-2.0) Neutrophils # (Auto) 5.7 TH/MM3 (1.8-7.7) Lymphocytes # (Auto) 0.7 TH/MM3 (1.0-4.8) Monocytes # (Auto) 0.9 TH/MM3 (0-0.9) Eosinophils # (Auto) 0.2 TH/MM3 (0-0.4) Basophils # (Auto) 0.0 TH/MM3 (0-0.2) CBC Comment DIFF FINAL Differential Comment Platelet Function P2Y12 React 228 PRU Units (194-418) Sodium Level 138 MEQ/L (136-145) Potassium Level 4.1 MEQ/L (3.5-5.1) Chloride Level 103 MEQ/L (98-107) Carbon Dioxide Level 25.0 MEQ/L (21.0-32.0) Anion Gap 10 MEQ/L (5-15) Blood Urea Nitrogen 22 MG/DL (7-18) Creatinine 1.09 MG/DL (0.60-1.30) Estimat Glomerular Filtration 66 ML/MIN (>89) Rate Random Glucose 139 MG/DL (74-106) Calcium Level 8.5 MG/DL (8.5-10.1) Total Bilirubin 0.7 MG/DL (0.2-1.0) Direct Bilirubin 0.2 MG/DL (0.0-0.2) Indirect Bilirubin 0.5 MG/DL (0.0-0.8) Aspartate Amino Transf 18 U/L (15-37) (AST/SGOT) Alanine Aminotransferase 42 U/L (12-78) (ALT/SGPT) Alkaline Phosphatase 98 U/L (45-117) Total Protein 6.4 GM/DL (6.4-8.2) Albumin 3.1 GM/DL (3.4-5.0) Blood Type A POSITIVE A POSITIVE Antibody Screen NEGATIVE Crossmatch Leukocyte-Reduced Red Blood Cells Blood Bank Comment Result Diagram: 06/26/16 0650 06/26/16 0650 Telemetry: NSR (1) Coronary artery disease Plan: for surgery on Thursday (2) NSTEMI (non-ST elevated myocardial infarction) Plan: ASA, statin , BB , nitro (3) COPD (chronic obstructive pulmonary disease) Plan: on symbicort , nebs , ezpap (4) Diabetes mellitus Plan: on diabetic diet , insulin sliding scale , HGB A1C 6.8 (5) PVD (peripheral vascular disease) Plan: on ASA, will need to resume plavix after surgery (6) Hyperlipemia Plan: on statin (7) Hypertension Plan: controlled, on BB , may need to add home cardizem (8) CKD (chronic kidney disease), stage II Plan: monitor closely, avoid nephrotoxins (9) Tracheobronchitis Plan: appreciate ID, on po levaquin, polo nebs WBC normal, no fever CXR mild atelectasis right base continue nebs Lauren Garcia Jun 26, 2016 10:36
--- NOTE | 2016-06-26 12:35 | HHI.IDPN ---
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 Patient presented to [facility] with midsternal chest pain, non-radiating, associated with shortness of breath, no nausea or vomiting, off and on for about a week. He was ruled in for apparently a STEMI. Patient underwent a cardiac cath which showed with multivessel disease. Patient is currently being considered for CABG but due to his persistent cough a sputum was sent and grew Pseudomonas aeruginosa. ID is consulted to help evaluate and manage this. Patient reports he has had chronic cough with varying colors and amount of sputum over last few weeks. He was prescribed a Zpack by PCP with no response. He has been on Bactrim off and on in past but never Levaquin per daughter and patient in room. No fevers No chills Cough with yellowish pulido expectoration. No hemoptysis No h.o TB No occupational exposures. No family h/o lung diseases or TB. Antibiotics Levaquin [place] nebs Lines Line sites with no e/o infection Past Medical History reviewed Allergies: Coded Allergies: No Known Allergies (Unverified , 06/23/16) Objective . Vital Signs Date Time Temp Pulse Resp B/P Pulse Ox O2 Delivery O2 Flow Rate FiO2 06/26/16 12:00 72 06/26/16 11:00 71 06/26/16 11:00 97.9 74 20 125/58 98 06/26/16 10:00 77 06/26/16 09:00 82 06/26/16 08:00 86 06/26/16 07:59 98 21 06/26/16 07:00 67 06/26/16 07:00 97.9 77 20 129/85 96 06/26/16 06:00 88 06/26/16 05:00 85 06/26/16 04:00 86 06/26/16 04:00 98.5 82 18 137/74 97 06/26/16 03:00 83 06/26/16 02:00 86 06/26/16 01:00 84 06/26/16 00:08 97 06/26/16 00:00 82 06/26/16 00:00 98.1 88 18 132/72 97 06/25/16 23:00 84 06/25/16 22:00 96 06/25/16 21:00 86 06/25/16 20:47 96 21 06/25/16 20:00 98.5 94 18 136/75 97 06/25/16 20:00 91 06/25/16 19:00 84 06/25/16 18:00 91 06/25/16 17:00 80 06/25/16 16:00 79 06/25/16 15:00 97.3 77 18 142/74 97 06/25/16 15:00 78 06/25/16 14:00 77 06/25/16 13:00 75 06/25/16 06/25/16 06/26/16 15:00 23:00 07:00 Intake Total 450 ml 480 ml Balance 450 ml 480 ml Intake Oral 450 ml 480 ml # Voids 3 # Bowel Movements 1 . Laboratory Tests Test 06/26/16 06:50 White Blood Count 7.5 TH/MM3 Red Blood Count 3.70 MIL/MM3 Hemoglobin 11.3 GM/DL Hematocrit 33.8 % Mean Corpuscular Volume 91.4 FL Mean Corpuscular Hemoglobin 30.5 PG Mean Corpuscular Hemoglobin 33.4 % Concent Red Cell Distribution Width 13.5 % Platelet Count 180 TH/MM3 Mean Platelet Volume 7.8 FL Neutrophils (%) (Auto) 76.0 % Lymphocytes (%) (Auto) 9.3 % Monocytes (%) (Auto) 11.4 % Eosinophils (%) (Auto) 2.7 % Basophils (%) (Auto) 0.6 % Neutrophils # (Auto) 5.7 TH/MM3 Lymphocytes # (Auto) 0.7 TH/MM3 Monocytes # (Auto) 0.9 TH/MM3 Eosinophils # (Auto) 0.2 TH/MM3 Basophils # (Auto) 0.0 TH/MM3 CBC Comment DIFF FINAL Differential Comment Laboratory Tests Test 06/25/16 06/26/16 13:48 06:50 Procalcitonin LESS THAN 0.05 ng/mL Sodium Level 138 MEQ/L Potassium Level 4.1 MEQ/L Chloride Level 103 MEQ/L Carbon Dioxide Level 25.0 MEQ/L Anion Gap 10 MEQ/L Blood Urea Nitrogen 22 MG/DL Creatinine 1.09 MG/DL Estimat Glomerular Filtration 66 ML/MIN Rate Random Glucose 139 MG/DL Calcium Level 8.5 MG/DL Total Bilirubin 0.7 MG/DL Direct Bilirubin 0.2 MG/DL Indirect Bilirubin 0.5 MG/DL Aspartate Amino Transf 18 U/L (AST/SGOT) Alanine Aminotransferase 42 U/L (ALT/SGPT) Alkaline Phosphatase 98 U/L Total Protein 6.4 GM/DL Albumin 3.1 GM/DL Microbiology Date/Time Procedure Status Source Growth 06/23/16 23:15 Gram Stain - Final Complete Sputum Expectorated Sputum 06/23/16 23:15 Sputum Culture - Final Complete Pseudomonas Aeruginosa Imaging Last Impressions Chest X-Ray 06/26/16 0000 Signed Impressions: Service Date/Time: June 08:55 - CONCLUSION: Mild atelectasis or consolidation at the right base. Josh Issa MD Lower Extremity Ultrasound 06/22/16 0000 Signed Impressions: Service Date/Time: Wednesday, June 22, 2016 19:14 - CONCLUSION: 1. Surgical removal of the greater saphenous veins. Gurpreet Velasquez MD Carotid Artery Ultrasound 06/22/16 0000 Signed Impressions: Service Date/Time: Wednesday, June 22, 2016 19:33 - CONCLUSION: 1. There is mild to moderate calcified plaque formation near the carotid bifurcations bilaterally. No hemodynamically significant stenosis is identified. Vertebral artery flow is antegrade bilaterally. Gurpreet Velasquez MD Physical Exam GENERAL: This is a well-nourished, well-developed patient, in no apparent distress. SKIN: No rashes, ecchymoses or lesions. Cool and dry. HEAD: Atraumatic. Normocephalic. No temporal or scalp tenderness. EYES: Pupils equal round and reactive. Extraocular motions intact. No scleral icterus. No injection or drainage. ENT: Nose without bleeding, purulent drainage or septal hematoma. Throat without erythema, tonsillar hypertrophy or exudate. Uvula midline. Airway patent. NECK: Trachea midline. Supple, nontender, no meningeal signs. CARDIOVASCULAR: HS audible. RRR RESPIRATORY: Clear to auscultation. Breath sounds equal bilaterally. GASTROINTESTINAL: Abdomen soft, non-tender, nondistended. MUSCULOSKELETAL: Right great, 2nd and 3rd,5th toe s/p amputation with no active signs of infection. NEUROLOGICAL: Awake and alert. Grossly non focal Psych:cooperative IV line sites with no e.o infection. Assessment & Plan Remarks Pseudomonas aeruginosa in sputum ? tracheobronchitis. Susceptibility pending. 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 PAD ST segment [place] s/p cardiac cath with multivessel disease. COPD stable. DM uncontrolled. HTN Recs: Continue Levaquin oral will treat a short 3-5 day based on clinical response. Continue Tobramycin nebulizations Procalcitonin low normal mild infection if at all. Follow clinically. Explained to patient that the treatment is in an attempt to reduce perioperative Vent associated pneumonias. I also explained that despite treating sometimes infections can occur but by treating we are reducing the organism burden and hence his chances of Pneumonia perioperatively. d/w RN d.w patient. Ok to proceed with surgery from ID standpoint. Continue and complete a 3-5 day course based on clinical response. Will sign off please call back if any change in clinical condition. I will be OOT from 06/27/16 to 07/04/16 please call ID foundation drill operator with any new issues. Chetna Madera MD Jun 26, 2016 12:34
[2016-06-26] MEDS ORDERED: INSULIN HUMAN REGULAR 1,000 UNITS/10 ML VIAL SQ PRN (20:45)
[2016-06-26] MEDS: SODIUM CHLORID 0.9% 500 ML IV SCH (20:45)
[2016-06-26] MEDS: LACTATED RINGER'S 1000 ML IV SCH (20:45)
[2016-06-27] VITALS (25 sets, daily range): BP systolic 122–127; BP diastolic 51–64; PULSE 64–96; RESP 14–20; TEMP 97.8–98.5; O2SAT 95–99
[2016-06-27] MEDS: NITROGLYCERIN 2% OINT 1 GM PACKET TOPICAL SCH ×5 (00:27→23:13)
[2016-06-27] MEDS: PRAVASTATIN SOD 40 MG TAB PO SCH ×2 (00:28→20:32)
[2016-06-27] MEDS: traZODone HCL 100 MG TAB PO SCH ×2 (00:28→20:25)
[2016-06-27] MEDS: ZOLPIDEM TARTRATE 5 MG TAB PO PRN ×2 (00:28→20:25)
[2016-06-27] MEDS: METOPROLOL TARTRATE 25 MG TAB PO SCH ×3 (00:28→20:26)
[2016-06-27] MEDS: BUDESONIDE-FORMOTEROL 160/4.5 MCG INHALER INH SCH ×3 (00:29→20:26)
[2016-06-27] MEDS: INSULIN NovoLIN REGULAR SUPPLEMENTAL SCALE SQ SCH ×5 (00:34→20:27)
[2016-06-27] MEDS ORDERED: NITROGLYCERIN-DEXTROSE INJ 250 ML IV ONE (05:00)
[2016-06-27] MEDS ORDERED: AMINOCAPROIC ACID INJ 250 MG/ML 20 ML VIAL IV ONE ×2 (05:00→09:15)
[2016-06-27] MEDS ORDERED: HEPARIN SODIUM - SQ 10,000 UNITS/ML VIAL SQ ONE (05:00)
[2016-06-27] MEDS ORDERED: MAGNESIUM SULFATE 1000 MG/2 ML VIAL (PED) IV ONE (05:00)
[2016-06-27] MEDS ORDERED: HEPARIN SODIUM - SQ 10,000 UNITS/ML VIAL ONE (06:33)
[2016-06-27] MEDS ORDERED: VANCOMYCIN HCL 1000 MG VIAL ONE (06:33)
[2016-06-27] MEDS ORDERED: POTASSIUM CHLORIDE 40 MEQ/20 ML VIAL ONE (07:08)
[2016-06-27] MEDS: RESP: TOBRAMYCIN SULFATE 80 MG/2 ML NEB NEB SCH ×2 (08:00→21:25)
[2016-06-27] MEDS: RESP: ALBUTEROL 2.5 MG/IPRATROPIUM 0.5 MG NEB (SCH) NEB ×3 (08:00→21:05)
[2016-06-27] MEDS: SODIUM CHLORIDE 0.9% FLUSH 5 ML FLUSH IV FLUSH SCH ×3 (09:00→20:27)
[2016-06-27] MEDS: FERROUS SULFATE 325 MG (65 MG ELEMENTAL IRON) TAB PO SCH (09:00)
[2016-06-27] MEDS: DIFLUPREDNATE RIGHT EYE SCH ×2 (09:00→20:26)
[2016-06-27] MEDS: MOXIFLOXACIN 0.5% OPHT SOLN 3 ML BTL RIGHT EYE SCH ×4 (09:00→20:26)
[2016-06-27] MEDS ORDERED: BUPIVACAINE LIPOSO PF 1.3% INJ 20 ML, DEXAMETHASONE INJ 4 MG in SODIUM CHLORIDE 0.9% IN... P-ARTICULR SCH (09:00)
[2016-06-27] MEDS: LEVOFLOXACIN 500 MG TAB PO SCH (09:00)
[2016-06-27] MEDS: ASPIRIN EC 81 MG TABEC PO SCH (09:00)
[2016-06-27] MEDS ORDERED: SODIUM CHLOR 0.9% 1000 ML INJ 1,000 ML IV ONE (09:15)
[2016-06-27] MEDS ORDERED: SODIUM CHLORIDE 0.9% INJ 100 ML IV ONE (09:15)
[2016-06-27] MEDS ORDERED: LACTATED RINGER'S 1000 ML INJ 1,000 ML IV ONE (09:15)
[2016-06-27] MEDS ORDERED: SODIUM CHLORID 0.9% 500 ML INJ 1,000 ML IV ONE (09:15)
[2016-06-27] MEDS ORDERED: PROPOFOL 500 MG/50 ML BTL IV ONE (09:15)
[2016-06-27] MEDS ORDERED: SODIUM CHLOR 0.9% 250 ML INJ 250 ML IV ONE (09:15)
[2016-06-27] MEDS ORDERED: PROTAMINE SULFATE 250 MG/25 ML VIAL IV ONE (09:20)
[2016-06-27] MEDS: DOBUTamine PREMIX DRIP 250 ML IV SCH (11:33)
[2016-06-27] MEDS ORDERED: LACTATED RINGER'S 1000 ML INJ 500 ML IV PRN (11:33)
--- NOTE | 2016-06-27 11:43 | PD.OP ---
cc: Stephany Gan MD; Deniz Flores MD Operative Report Date of Surgery: Jun 27, 2016 Preoperative Diagnosis: Postoperative Diagnosis: Procedure: 1. Minimally Invasive Coronary Artery Bypass Grafting x 1 (MIDCAB) with OMBLEY to LAD 2. Intercostal Nerve Block . Surgeon: Stephany Gan Game Show Host(s): Dion Bolanos Operation and Findings: PREOPERATIVE DIAGNOSES 1. Coronary Artery Disease 2. COPD 3. Severe PVOD - s/p multiple surgical interventions 4. Moderate Left Ventricular Dysfunction 5. Pneumonia POSTOPERATIVE DIAGNOSES Same SURGICAL PROCEDURE 1. Minimally Invasive Coronary Artery Bypass Grafting x 1 (MIDCAB) with MOBLEY to LAD 2. Intercostal Nerve Block MILK HAULER ERIKA Gonzales ANESTHESIA General Endotracheal. HUMAN CAPITAL ANALYST Anabell Ryan CRNA, Spike Nicole MD PREPARATION ChloraPrep. NEEDLE, SPONGE AND INSTRUMENT COUNT Correct. DRAINS 24 Fr Flavio Drain. COMPLICATIONS None. INDICATIONS The patient is a 75-year-old with chest pain and CAD, presenting for surgical correction of the above pathology. DESCRIPTION OF PROCEDURE The patient was brought to the operating room and placed supine on the OR table. Following the induction of adequate general double lumen endotracheal anesthesia and placement of appropriate monitoring devices, the patient was then prepped and draped in the standard sterile fashion. The patient was positioned supine with the left chest slightly bumped up using an inflatable balloon. A left anterior mini-thoracotomy (6 cm) was then performed in the 4th ICS mid- clavicular line and carried down to the pleura. The left pleural space was entered. Using the Medtronic Thoratrak retractor, the left internal mammary artery (MOBLEY) was dissected free as a pedicle from the posterior sternal table. The entire length from the innominate vein to its bifurcation was harvested. The patient was systemically heparinized and anticoagulation monitored by serial ACT measurements. The pericardium was then opened longitudinally over the anterior wall. Stay sutures were placed and the heart exposed. The LAD was identified coursing trans-apically and isolated. At this point the MOBLEY was anastomosed to the mid LAD in an end-to-side fashion in a beating heart manner using the Medtronic Octopus NS stabilizer and a running 7-0 Prolene stitch. The anastomosis was inspected and appeared to be hemostatic and patent with triphasic flow via doppler evaluation. Protamine was given. The pericardium was partially reapproximated with interrupted Vicryl sutures. The length of the MOBLEY graft as well as the harvest sites were inspected and assured to be hemostatic. Intercostal nerve block was performed using Exparel at the level of the incision as well as two rib spaces above and below. A 24 Fr Flavio drain was placed in the pleural space. The intercostal space was approximated with 2 pericostal sutures of #1 Vicryl. The musculo-fascial layer was then closed in 2 layers. The skin was reapproximated with subcuticular stitch and Dermabond. The patient tolerated the procedure well and was transferred to CVICU in stable condition. Stephany Gan MD Jun 27, 2016 11:43
[2016-06-27] MEDS ORDERED: Post-op Orders (for Pharmacy) MISC OTHER ONE (11:45)
[2016-06-27] MEDS ORDERED: DEXTROSE 50% IN WATER 50 ML VIAL(D50) IV PUSH PRN (11:45)
[2016-06-27] MEDS ORDERED: EPINEPHrine (1:1000) INJ 4 MG in DEXTROSE 5% IN WATER INJ 246 ML IV SCH ×2 (11:45)
[2016-06-27] MEDS ORDERED: ALBUMIN HUMAN 5% 12.5 GM/250 ML BOTTLE IV PRN (11:45)
[2016-06-27] MEDS ORDERED: POTASSIUM CHLOR 20 MEQ PREMIX 100 ML IV PRN ×3 (11:45)
[2016-06-27] MEDS ORDERED: MORPHINE SULFATE 4 MG/ML INJ IV PRN (11:45)
[2016-06-27] MEDS ORDERED: PHENYLEPHRINE INJ 40 MG in DEXTROSE 5% IN WATE 500 ML INJ 496 ML IV SCH ×2 (11:45)
[2016-06-27] MEDS ORDERED: DOPamine INJ PREMIX 500 ML IV SCH (11:45)
[2016-06-27] MEDS ORDERED: MAGNESIUM SULFATE INJ 2 GM in SODIUM CHLORIDE 0.9% INJ 100 ML IV PRN ×4 (11:45)
[2016-06-27] MEDS ORDERED: ONDANSETRON HCL 4 MG/2 ML VIAL IV PUSH PRN (11:45)
[2016-06-27] MEDS ORDERED: CLEVIDIPINE INJ 50 ML IV SCH (11:45)
[2016-06-27] MEDS ORDERED: DEXMEDETOMIDINE INJ 50 ML IV SCH (11:45)
[2016-06-27] MEDS ORDERED: CALCIUM CHLORIDE 10% 1 GRAM/10 ML VIAL IV PRN (11:45)
[2016-06-27] MEDS ORDERED: CALCIUM CHLORIDE INJ 1 GM in SODIUM CHLORIDE 0.9% INJ 100 ML IV PRN (11:45)
[2016-06-27] MEDS ORDERED: ACETAMINOPHEN 650 MG SUPP RECTAL PRN (11:45)
[2016-06-27] MEDS ORDERED: SODIUM CHLORIDE 0.9% FLUSH 5 ML FLUSH IV FLUSH PRN (11:45)
[2016-06-27] MEDS ORDERED: KETOROLAC TROMETHAMINE 30 MG/ML (IVP) VIAL IV PUSH PRN (11:45)
[2016-06-27] MEDS ORDERED: POTASSIUM CHLORIDE 20 MEQ CONTROLLED RELEASE TAB PO PRN ×2 (11:45)
[2016-06-27] MEDS ORDERED: hydrALAZINE HCL 20 MG/ML VIAL IV PRN (11:45)
[2016-06-27] MEDS ORDERED: MEPERIDINE HCL 25 MG/ML VIAL IV PRN (11:45)
[2016-06-27] MEDS ORDERED: INSULIN REGULAR (IV INFUSION) 100 UNITS in SODIUM CHLORIDE 0.9% INJ 99 ML IV SCH (11:45)
[2016-06-27] MEDS ORDERED: NITROGLYCERIN-DEXTROSE INJ 250 ML IV SCH (11:45)
[2016-06-27] MEDS ORDERED: METOPROLOL TARTRATE 5 MG/5 ML VIAL IV PUSH PRN (11:45)
[2016-06-27] MEDS ORDERED: ACETAMINOPHEN 325 MG TAB PO PRN (11:45)
[2016-06-27] MEDS ORDERED: MIDAZOLAM HCL 5 MG/5 ML VIAL ONE (12:08)
[2016-06-27] MEDS ORDERED: fentaNYL CITRATE 1000 MCG/20 ML VIAL ONE (12:08)
[2016-06-27] MEDS ORDERED: PROPOFOL 1000 MG/100 ML INJ 100 ML ONE (12:12)
--- NOTE | 2016-06-27 12:34 | RADRPT ---
EXAM DATE/TIME: 06/27/2016 12:08 [facility] COMPARISON: CHEST SINGLE AP, June 26, 2016, 8:55. INDICATIONS: Post CABG. MEDICAL HISTORY: Chronic obstructive pulmonary disease. Gastroesophageal reflux disease. Coronary artery disease. Peripheral vascular disease. SURGICAL HISTORY: CABG. Multiple leg venous and arterial surgeries. Hernia repair. Amputations of right toes. ENCOUNTER: Subsequent ACUITY: 4 - 6 days PAIN SCORE: Non-responsive. LOCATION: .Chest FINDINGS: ET tube, nasogastric tube, central venous catheter are in good position. Right lung is clear. Conso lidative changes are seen in the left base. Heart and pulmonary vascularity are normal. CONCLUSION: 1. Consolidative changes left base. 2. Support apparatus in good position. Marciano Bustamante MD FACR on June 27, 2016 at 12:28 Board Certified Radiologist. This report was verified electronically.
[2016-06-27] MEDS: ACETAMINOPHEN 1000 MG/100 ML VIAL IV SCH ×3 (12:41→23:13)
[2016-06-27] MEDS ORDERED: RESP: ALBUTEROL 2.5 MG/IPRATROPIUM 0.5 MG NEB (PRN) NEB (12:45)
[2016-06-27] MEDS ORDERED: RESP: RACEPINEPHRINE 2.25% 0.5 ML NEB NEB PRN (12:45)
[2016-06-27] MEDS: SODIUM CHLORID 0.9% 500 ML IV SCH (13:25)
[2016-06-27] MEDS: RESP: ALBUTEROL 2.5 MG/3 ML NEB (PRN) NEB (13:47)
[2016-06-27] MEDS: ceFAZolin 2 GM PREMIX 50 ML IV SCH ×2 (16:06→23:13)
[2016-06-27] MEDS: oxyCODONE/ACETAMINOPHEN 5 MG/325 MG TAB PO PRN (20:25)
[2016-06-27] MEDS: AMIODARONE 200 MG TAB PO SCH (20:25)
[2016-06-27] MEDS: LACTATED RINGER'S 1000 ML IV SCH (20:45)
[2016-06-28] VITALS (16 sets, daily range): BP systolic 119–139; BP diastolic 45–73; PULSE 69–92; RESP 16–20; TEMP 97.5–98.3; O2SAT 94–96
[2016-06-28] MEDS: oxyCODONE/ACETAMINOPHEN 5 MG/325 MG TAB PO PRN ×2 (01:06→04:32)
[2016-06-28] MEDS: RESP: ALBUTEROL 2.5 MG/IPRATROPIUM 0.5 MG NEB (SCH) NEB ×4 (03:32→20:23)
--- NOTE | 2016-06-28 04:58 | RADRPT ---
EXAM DATE/TIME: 06/28/2016 03:02 [facility] COMPARISON: CHEST SINGLE AP, June 27, 2016, 12:08. INDICATIONS : Shortness of breath, possible pulmonary disease. MEDICAL HISTORY : Chronic obstructive pulmonary disease. Gastroesophageal reflux disease. Peripheral vascular disease . SURGICAL HISTORY : CABG. ENCOUNTER: Subsequent ACUITY: 4 - 6 days PAIN SCORE: Non-responsive. LOCATION: Bilateral chest FINDINGS: Left chest tube remains present. Patient has been extubated and NG tube removed. Right central line i n superior vena cava. Bilateral mostly basilar airspace disease. CONCLUSION: 1. Mild basilar airspace disease with small effusions. Left chest tube without pneumothorax. Patient has been extubated and NG tube removed. Gurpreet Velasquez MD on June 28, 2016 at 4:55 Board Certified Radiologist. This report was verified electronically.
[2016-06-28 05:41] LABS: HEMATOCRIT 35.5 % (39.0-51.0); MEAN CELL VOLUME 92.5 FL (80.0-100.0); MEAN CORPUSCULAR HEMOGLOBIN 30.9 PG (27.0-34.0); MEAN CORPUSCULAR HGB CONC 33.4 % (32.0-36.0); PLATELET COUNT 203 TH/MM3 (150-450); RED BLOOD COUNT 3.83 MIL/MM3 (4.50-5.90); RED CELL DISTRIBUTION WIDTH 13.8 % (11.6-17.2); REVIEW FLAG FINAL; WHITE BLOOD COUNT 18.2 TH/MM3 (4.0-11.0)
[2016-06-28] MEDS: ACETAMINOPHEN 1000 MG/100 ML VIAL IV SCH (05:45)
[2016-06-28 05:49] LABS: BICARBONATE 21.3 MEQ/L (21.0-32.0); MAGNESIUM 2.1 MG/DL (1.5-2.5); POTASSIUM 4.8 MEQ/L (3.5-5.1)
[2016-06-28] MEDS: PANTOPRAZOLE SOD 40 MG DELAYED RELEASE TAB PO SCH (06:14)
[2016-06-28] MEDS: NITROGLYCERIN 2% OINT 1 GM PACKET TOPICAL SCH ×4 (06:15→23:01)
[2016-06-28] MEDS: INSULIN NovoLIN REGULAR SUPPLEMENTAL SCALE SQ SCH (06:26)
[2016-06-28] MEDS: DOBUTamine PREMIX DRIP 250 ML IV SCH (07:07)
[2016-06-28] MEDS: ACETAMINOPHEN/HYDROcodone 325 MG/5 MG TAB PO PRN ×4 (07:40→20:52)
[2016-06-28] MEDS: RESP: TOBRAMYCIN SULFATE 80 MG/2 ML NEB NEB SCH ×2 (08:16→20:23)
[2016-06-28] MEDS: ceFAZolin 2 GM PREMIX 50 ML IV SCH ×3 (08:34→23:01)
[2016-06-28] MEDS: LEVOFLOXACIN 500 MG TAB PO SCH (08:35)
[2016-06-28] MEDS: METOPROLOL TARTRATE 25 MG TAB PO SCH ×2 (08:35→20:52)
[2016-06-28] MEDS: ASPIRIN 81 MG CHEW TAB PO SCH (08:35)
[2016-06-28] MEDS: CLOPIDOGREL 75 MG TAB PO SCH (08:35)
[2016-06-28] MEDS: FERROUS SULFATE 325 MG (65 MG ELEMENTAL IRON) TAB PO SCH (08:35)
[2016-06-28] MEDS: AMIODARONE 200 MG TAB PO SCH ×2 (08:35→20:54)
[2016-06-28] MEDS: SODIUM CHLORIDE 0.9% FLUSH 5 ML FLUSH IV FLUSH SCH ×4 (08:35→20:59)
[2016-06-28] MEDS: MOXIFLOXACIN 0.5% OPHT SOLN 3 ML BTL RIGHT EYE SCH ×4 (08:56→21:00)
[2016-06-28] MEDS: DIFLUPREDNATE RIGHT EYE SCH ×2 (08:56→21:00)
[2016-06-28] MEDS: BUDESONIDE-FORMOTEROL 160/4.5 MCG INHALER INH SCH ×2 (08:57→20:59)
--- NOTE | 2016-06-28 09:25 | EKG ---
Date Performed: 06/28/2016 Time Performed: 03:09:16 PTAGE: 75 years EKG: Sinus rhythm Possible septal infarct - age undetermined Nonspecific T-wave changes. Low QRS voltages in precordia l leads Abnormal ECG Compared to prior electrocardiogram,T-wave changes are slightly less prominent. PREVIOUS TRACING : 06/24/2016 21.47 DOCTOR: Fredrick Delgado Interpretating Date/Time 06/28/2016 09:23:49
--- NOTE | 2016-06-28 10:04 | PD.CAR.PN ---
CVT Progress Note Subjective/Hospital Course: 75/ male NSTEMI transferred from [facility] / multi vessel disease EF 40 % , Last dose of Plavix 06/22 PRU this am 166. For surgery or Thursday . Pt has hx severe PAD multi stents, vascular surgery ( including fem-pop bypass) amputation of right 1,2, 5 toes ( seen by Dr Rondon in past) no conduit in lower ext for grafting has chronic cough past 6-12 months, on inhalers at home PMH : severe PAD, HLP, HTN, recent cataract surgery, DM Type 11 diet controlled , CKD stage 11, COPD( FEV1 1.03) insomnia , chronic anemia 06/24 on ASA, BB , stain , nitro ECHO noted EF 40% mild MR AI, TR remain s chest pain free 06/25 pt remains pain free await PRU in am tentatively scheduled for surgery on Monday 06/26 appreciate ID input on po levaquin and polo nebs, on room air normal WBC, procalcitonin unremarkable proceed with OR in am 06/27 SURGICAL PROCEDURE 1. Minimally Invasive Coronary Artery Bypass Grafting x 1 (MIDCAB) with MOBLEY to LAD 2. Intercostal Nerve Block 06/28 Doing well transfer telemetry Likely D/C CT tomorrow Incentive spirometry Objective: Vital Signs Date Time Temp Pulse Resp B/P Pulse Ox O2 Delivery O2 Flow Rate FiO2 06/28/16 08:40 18 06/28/16 08:00 78 06/28/16 08:00 94 Nasal Cannula 3.00 06/28/16 08:00 98.0 81 18 128/64 96 119/48 06/28/16 07:14 94 Nasal Cannula 3.00 06/28/16 04:00 94 Nasal Cannula 3.00 06/28/16 03:34 95 Nasal Cannula 3.00 06/28/16 03:00 69 06/28/16 03:00 98.2 78 16 131/73 94 137/45 06/28/16 00:00 96 Nasal Cannula 4.00 06/27/16 23:00 97.9 78 16 122/52 96 123/64 06/27/16 23:00 81 06/27/16 21:07 99 Nasal Cannula 5.00 06/27/16 20:00 95 Nasal Cannula 4.00 06/27/16 19:00 80 06/27/16 19:00 98.5 80 20 127/51 97 06/27/16 18:40 80 06/27/16 17:04 81 06/27/16 16:15 88 06/27/16 16:14 88 06/27/16 16:13 99 Nasal Cannula 4.00 06/27/16 15:23 88 06/27/16 15:22 98.0 88 18 126/56 99 06/27/16 14:04 86 06/27/16 13:49 97 Nasal Cannula 4.00 06/27/16 13:12 17 06/27/16 13:08 80 06/27/16 12:55 95 Nasal Cannula 4 06/27/16 12:29 97.8 68 14 125/58 98 06/27/16 12:28 68 06/27/16 12:26 40 06/27/16 12:24 99 Mechanical Ventilator 40 06/27/16 12:23 74 06/27/16 11:58 99 50 Labs: Laboratory Tests Test 06/28/16 05:12 White Blood Count 18.2 TH/MM3 (4.0-11.0) Red Blood Count 3.83 MIL/MM3 (4.50-5.90) Hemoglobin 11.9 GM/DL (13.0-17.0) Hematocrit 35.5 % (39.0-51.0) Mean Corpuscular Volume 92.5 FL (80.0-100.0) Mean Corpuscular Hemoglobin 30.9 PG (27.0-34.0) Mean Corpuscular Hemoglobin 33.4 % Concent (32.0-36.0) Red Cell Distribution Width 13.8 % (11.6-17.2) Platelet Count 203 TH/MM3 (150-450) Mean Platelet Volume 7.9 FL (7.0-11.0) Sodium Level 135 MEQ/L (136-145) Potassium Level 4.8 MEQ/L (3.5-5.1) Chloride Level 100 MEQ/L (98-107) Carbon Dioxide Level 21.3 MEQ/L (21.0-32.0) Anion Gap 14 MEQ/L (5-15) Blood Urea Nitrogen 22 MG/DL (7-18) Creatinine 1.04 MG/DL (0.60-1.30) Estimat Glomerular Filtration 69 ML/MIN (>89) Rate Random Glucose 122 MG/DL (74-106) Calcium Level 8.6 MG/DL (8.5-10.1) Magnesium Level 2.1 MG/DL (1.5-2.5) Result Diagram: 06/28/1651106/28/16511 (1) Coronary artery disease Plan: for surgery on Thursday (2) NSTEMI (non-ST elevated myocardial infarction) Plan: ASA, statin , BB , nitro (3) COPD (chronic obstructive pulmonary disease) Plan: on symbicort , nebs , ezpap (4) Diabetes mellitus Plan: on diabetic diet , insulin sliding scale , HGB A1C 6.8 (5) PVD (peripheral vascular disease) Plan: on ASA, will need to resume plavix after surgery (6) Hyperlipemia Plan: on statin (7) Hypertension Plan: controlled, on BB , may need to add home cardizem (8) CKD (chronic kidney disease), stage II Plan: monitor closely, avoid nephrotoxins (9) Tracheobronchitis Plan: appreciate ID, on po levaquin, polo nebs WBC normal, no fever CXR mild atelectasis right base continue nebs ezpap Stephany Gan MD Jun 28, 2016 10:04
[2016-06-28] MEDS ORDERED: GLUCAGON 1 MG/ML VIAL OTHER PRN (10:15)
[2016-06-28] MEDS ORDERED: SOD PHOSPHATE/SOD BIPHOSPHATE (ADULT) ENEMA 133ML RECTAL PRN (10:15)
[2016-06-28] MEDS ORDERED: BISACODYL 10 MG SUPP RECTAL PRN (10:15)
[2016-06-28] MEDS ORDERED: DEXTROSE 50% IN WATER 50 ML VIAL(D50) IV PRN (10:15)
[2016-06-28] MEDS: INSULIN ASPART SUPPLEMENTAL SCALE SQ SCH ×3 (13:11→22:00)
[2016-06-28] MEDS: DOCUSATE SODIUM 100 MG CAP PO SCH (20:53)
[2016-06-28] MEDS: traZODone HCL 100 MG TAB PO SCH (20:53)
[2016-06-28] MEDS: PRAVASTATIN SOD 40 MG TAB PO SCH (20:53)
[2016-06-28] MEDS: SENNOSIDES 8.6 MG TAB PO SCH (20:57)
[2016-06-28] MEDS ORDERED: METOPROLOL TARTRATE 25 MG TAB PO SCH (21:00)
[2016-06-28] MEDS: ZOLPIDEM TARTRATE 5 MG TAB PO PRN (22:46)
[2016-06-29] VITALS (26 sets, daily range): BP systolic 108–121; BP diastolic 67–71; PULSE 78–92; RESP 17–19; TEMP 97.7–98.2; O2SAT 93–95
[2016-06-29] MEDS: INSULIN ASPART SUPPLEMENTAL SCALE SQ SCH ×6 (02:00→22:17)
[2016-06-29] MEDS: ACETAMINOPHEN/HYDROcodone 325 MG/5 MG TAB PO PRN ×4 (02:57→20:14)
[2016-06-29 04:45] LABS: AUTOMATED NEUTROPHIL # 13.8 TH/MM3 (1.8-7.7); BASOPHIL % 0.2 % (0.0-2.0); EOSINOPHIL % 0.3 % (0.0-4.0); HEMATOCRIT 32.6 % (39.0-51.0); HEMO FLAGS DIFF FINAL; LYMPH % 2.4 % (9.0-44.0); LYMPHOCYTE # 0.4 TH/MM3 (1.0-4.8); MEAN CELL VOLUME 92.8 FL (80.0-100.0); MEAN CORPUSCULAR HEMOGLOBIN 30.8 PG (27.0-34.0); MEAN CORPUSCULAR HGB CONC 33.2 % (32.0-36.0); MONO % 10.8 % (0.0-8.0); NEUT % 86.3 % (16.0-70.0); PLATELET COUNT 169 TH/MM3 (150-450); RED BLOOD COUNT 3.51 MIL/MM3 (4.50-5.90); RED CELL DISTRIBUTION WIDTH 14.2 % (11.6-17.2)
[2016-06-29 05:39] LABS: BICARBONATE 26.3 MEQ/L (21.0-32.0); MAGNESIUM 2.2 MG/DL (1.5-2.5); POTASSIUM 4.3 MEQ/L (3.5-5.1)
[2016-06-29] MEDS: NITROGLYCERIN 2% OINT 1 GM PACKET TOPICAL SCH ×3 (06:30→18:42)
[2016-06-29] MEDS: PANTOPRAZOLE SOD 40 MG DELAYED RELEASE TAB PO SCH (06:30)
[2016-06-29] MEDS: RESP: ALBUTEROL 2.5 MG/IPRATROPIUM 0.5 MG NEB (SCH) NEB ×3 (07:21→19:25)
[2016-06-29] MEDS: RESP: TOBRAMYCIN SULFATE 80 MG/2 ML NEB NEB SCH ×2 (07:21→19:25)
[2016-06-29] MEDS ORDERED: CLOPIDOGREL 75 MG TAB PO SCH (09:00)
[2016-06-29] MEDS: CLOPIDOGREL 75 MG TAB PO SCH (09:07)
[2016-06-29] MEDS: POLYETHYLENE GLYCOL 17 GM PKG PO SCH (09:07)
[2016-06-29] MEDS: DOCUSATE SODIUM 100 MG CAP PO SCH ×2 (09:07→20:14)
[2016-06-29] MEDS: MAGNESIUM HYDROXIDE SUSP 30 ML CUP PO SCH (09:07)
[2016-06-29] MEDS: AMIODARONE 200 MG TAB PO SCH ×2 (09:08→20:16)
[2016-06-29] MEDS: MULTIVITAMINS/MINERALS THERAPEUTIC TAB PO SCH (09:08)
[2016-06-29] MEDS: FERROUS SULFATE 325 MG (65 MG ELEMENTAL IRON) TAB PO SCH (09:08)
[2016-06-29] MEDS: LEVOFLOXACIN 500 MG TAB PO SCH (09:08)
[2016-06-29] MEDS: METOPROLOL TARTRATE 25 MG TAB PO SCH ×2 (09:08→20:13)
[2016-06-29] MEDS: ASPIRIN 81 MG CHEW TAB PO SCH (09:09)
[2016-06-29] MEDS: SODIUM CHLORIDE 0.9% FLUSH 5 ML FLUSH IV FLUSH SCH ×4 (09:10→20:16)
[2016-06-29] MEDS: BUDESONIDE-FORMOTEROL 160/4.5 MCG INHALER INH SCH ×2 (09:11→20:15)
[2016-06-29] MEDS: DIFLUPREDNATE RIGHT EYE SCH ×2 (09:12→20:16)
[2016-06-29] MEDS: MOXIFLOXACIN 0.5% OPHT SOLN 3 ML BTL RIGHT EYE SCH ×4 (09:12→20:16)
--- NOTE | 2016-06-29 09:30 | PD.CAR.PN ---
CVT Progress Note Subjective/Hospital Course: 75/ male NSTEMI transferred from [facility] / multi vessel disease EF 40 % , Last dose of Plavix 06/22 PRU this am 166. For surgery or Thursday . Pt has hx severe PAD multi stents, vascular surgery ( including fem-pop bypass) amputation of right 1,2, 5 toes ( seen by Dr Rondon in past) no conduit in lower ext for grafting has chronic cough past 6-12 months, on inhalers at home PMH : severe PAD, HLP, HTN, recent cataract surgery, DM Type 11 diet controlled , CKD stage 11, COPD( FEV1 1.03) insomnia , chronic anemia 06/24 on ASA, BB , stain , nitro ECHO noted EF 40% mild MR AI, TR remain s chest pain free 06/25 pt remains pain free await PRU in am tentatively scheduled for surgery on Monday 06/26 appreciate ID input on po levaquin and polo nebs, on room air normal WBC, procalcitonin unremarkable proceed with OR in am 06/27 SURGICAL PROCEDURE 1. Minimally Invasive Coronary Artery Bypass Grafting x 1 (MIDCAB) with MOBLEY to LAD 2. Intercostal Nerve Block 06/28 Doing well transfer telemetry Likely D/C CT tomorrow Incentive spirometry 06/29 Doing well D/C CT today Lungs sound "junky" but not coughing up anything Aggressive pulmonary toiletry Ambulate Objective: Vital Signs Date Time Temp Pulse Resp B/P Pulse Ox O2 Delivery O2 Flow Rate FiO2 06/29/16 07:24 93 21 06/29/16 07:00 81 06/29/16 07:00 97.8 85 18 119/67 95 06/29/16 06:36 89 06/29/16 05:10 85 06/29/16 04:14 83 06/29/16 03:00 95 Room Air 06/29/16 03:00 97.7 87 19 115/68 95 06/29/16 03:00 87 06/29/16 02:22 83 06/29/16 01:09 87 06/29/16 00:42 83 06/28/16 23:00 85 06/28/16 23:00 97.5 92 17 139/69 96 06/28/16 23:00 96 Nasal Cannula 1.00 06/28/16 22:00 88 06/28/16 21:00 82 06/28/16 20:23 96 Nasal Cannula 2.00 06/28/16 20:00 97 Nasal Cannula 1.00 06/28/16 20:00 82 06/28/16 20:00 97.7 83 20 128/70 96 06/28/16 19:00 81 06/28/16 18:05 80 06/28/16 17:00 76 06/28/16 16:56 80 06/28/16 16:00 96 Nasal Cannula 2.00 06/28/16 15:59 87 06/28/16 15:59 98.3 87 18 120/62 96 06/28/16 11:39 95 Nasal Cannula 2.00 06/28/16 11:38 75 06/28/16 11:35 98.2 88 18 128/62 96 Arterial Line Labs: Laboratory Tests Test 06/29/16 04:25 White Blood Count 16.0 TH/MM3 (4.0-11.0) Red Blood Count 3.51 MIL/MM3 (4.50-5.90) Hemoglobin 10.8 GM/DL (13.0-17.0) Hematocrit 32.6 % (39.0-51.0) Mean Corpuscular Volume 92.8 FL (80.0-100.0) Mean Corpuscular Hemoglobin 30.8 PG (27.0-34.0) Mean Corpuscular Hemoglobin 33.2 % Concent (32.0-36.0) Red Cell Distribution Width 14.2 % (11.6-17.2) Platelet Count 169 TH/MM3 (150-450) Mean Platelet Volume 7.8 FL (7.0-11.0) Neutrophils (%) (Auto) 86.3 % (16.0-70.0) Lymphocytes (%) (Auto) 2.4 % (9.0-44.0) Monocytes (%) (Auto) 10.8 % (0.0-8.0) Eosinophils (%) (Auto) 0.3 % (0.0-4.0) Basophils (%) (Auto) 0.2 % (0.0-2.0) Neutrophils # (Auto) 13.8 TH/MM3 (1.8-7.7) Lymphocytes # (Auto) 0.4 TH/MM3 (1.0-4.8) Monocytes # (Auto) 1.7 TH/MM3 (0-0.9) Eosinophils # (Auto) 0.0 TH/MM3 (0-0.4) Basophils # (Auto) 0.0 TH/MM3 (0-0.2) CBC Comment DIFF FINAL Differential Comment Sodium Level 135 MEQ/L (136-145) Potassium Level 4.3 MEQ/L (3.5-5.1) Chloride Level 100 MEQ/L (98-107) Carbon Dioxide Level 26.3 MEQ/L (21.0-32.0) Anion Gap 9 MEQ/L (5-15) Blood Urea Nitrogen 33 MG/DL (7-18) Creatinine 1.17 MG/DL (0.60-1.30) Estimat Glomerular Filtration 61 ML/MIN (>89) Rate Random Glucose 137 MG/DL (74-106) Calcium Level 8.3 MG/DL (8.5-10.1) Magnesium Level 2.2 MG/DL (1.5-2.5) Result Diagram: 06/29/1642406/29/16424 (1) Coronary artery disease Plan: for surgery on Thursday (2) NSTEMI (non-ST elevated myocardial infarction) Plan: ASA, statin , BB , nitro (3) COPD (chronic obstructive pulmonary disease) Plan: on symbicort , nebs , ezpap (4) Diabetes mellitus Plan: on diabetic diet , insulin sliding scale , HGB A1C 6.8 (5) PVD (peripheral vascular disease) Plan: on ASA, will need to resume plavix after surgery (6) Hyperlipemia Plan: on statin (7) Hypertension Plan: controlled, on BB , may need to add home cardizem (8) CKD (chronic kidney disease), stage II Plan: monitor closely, avoid nephrotoxins (9) Tracheobronchitis Plan: appreciate ID, on po levaquin, polo nebs WBC normal, no fever CXR mild atelectasis right base continue nebs ezpap Stephany Gan MD Jun 29, 2016 09:30
[2016-06-29] MEDS: PRAVASTATIN SOD 40 MG TAB PO SCH (20:13)
[2016-06-29] MEDS: traZODone HCL 100 MG TAB PO SCH (20:13)
[2016-06-29] MEDS: SENNOSIDES 8.6 MG TAB PO SCH (20:14)
[2016-06-29] MEDS: ZOLPIDEM TARTRATE 5 MG TAB PO PRN (22:12)
[2016-06-30] VITALS (26 sets, daily range): BP systolic 110–165; BP diastolic 55–88; PULSE 67–92; RESP 18–20; TEMP 97.5–98.2; O2SAT 92–98
[2016-06-30] MEDS: ACETAMINOPHEN/HYDROcodone 325 MG/5 MG TAB PO PRN ×3 (00:36→14:31)
[2016-06-30] MEDS: INSULIN ASPART SUPPLEMENTAL SCALE SQ SCH ×5 (02:16→21:00)
[2016-06-30] MEDS: NITROGLYCERIN 2% OINT 1 GM PACKET TOPICAL SCH ×2 (05:16)
[2016-06-30] MEDS: PANTOPRAZOLE SOD 40 MG DELAYED RELEASE TAB PO SCH (05:22)
[2016-06-30] MEDS: RESP: ALBUTEROL 2.5 MG/3 ML NEB (PRN) NEB ×2 (05:33→20:15)
[2016-06-30] MEDS: RESP: ALBUTEROL 2.5 MG/IPRATROPIUM 0.5 MG NEB (SCH) NEB ×2 (07:17→13:58)
[2016-06-30] MEDS: RESP: TOBRAMYCIN SULFATE 80 MG/2 ML NEB NEB SCH ×2 (07:18→20:15)
[2016-06-30] MEDS: ASPIRIN 81 MG CHEW TAB PO SCH (09:00)
[2016-06-30] MEDS: SODIUM CHLORIDE 0.9% FLUSH 5 ML FLUSH IV FLUSH SCH ×3 (09:00→22:00)
[2016-06-30] MEDS: MAGNESIUM HYDROXIDE SUSP 30 ML CUP PO SCH (09:23)
[2016-06-30] MEDS: POLYETHYLENE GLYCOL 17 GM PKG PO SCH (09:23)
[2016-06-30] MEDS: DOCUSATE SODIUM 100 MG CAP PO SCH ×2 (09:24→20:52)
[2016-06-30] MEDS: LEVOFLOXACIN 500 MG TAB PO SCH (09:24)
[2016-06-30] MEDS: AMIODARONE 200 MG TAB PO SCH ×2 (09:24→21:20)
[2016-06-30] MEDS: FERROUS SULFATE 325 MG (65 MG ELEMENTAL IRON) TAB PO SCH (09:24)
[2016-06-30] MEDS: CLOPIDOGREL 75 MG TAB PO SCH (09:25)
[2016-06-30] MEDS: MULTIVITAMINS/MINERALS THERAPEUTIC TAB PO SCH (09:25)
[2016-06-30] MEDS: METOPROLOL TARTRATE 25 MG TAB PO SCH ×2 (09:25→21:20)
[2016-06-30] MEDS: BUDESONIDE-FORMOTEROL 160/4.5 MCG INHALER INH SCH ×2 (09:26→21:20)
[2016-06-30] MEDS: DIFLUPREDNATE RIGHT EYE SCH ×2 (09:26→21:00)
[2016-06-30] MEDS: MOXIFLOXACIN 0.5% OPHT SOLN 3 ML BTL RIGHT EYE SCH ×4 (09:26→21:00)
--- NOTE | 2016-06-30 12:51 | PD.CAR.PN ---
CVT Progress Note Subjective/Hospital Course: 75/ male NSTEMI transferred from [facility] / multi vessel disease EF 40 % , Last dose of Plavix 06/22 PRU this am 166. For surgery or Thursday . Pt has hx severe PAD multi stents, vascular surgery ( including fem-pop bypass) amputation of right 1,2, 5 toes ( seen by Dr Rondon in past) no conduit in lower ext for grafting has chronic cough past 6-12 months, on inhalers at home PMH : severe PAD, HLP, HTN, recent cataract surgery, DM Type 11 diet controlled , CKD stage 11, COPD( FEV1 1.03) insomnia , chronic anemia 06/24 on ASA, BB , stain , nitro ECHO noted EF 40% mild MR AI, TR remain s chest pain free 06/25 pt remains pain free await PRU in am tentatively scheduled for surgery on Monday 06/26 appreciate ID input on po levaquin and polo nebs, on room air normal WBC, procalcitonin unremarkable proceed with OR in am 06/27 SURGICAL PROCEDURE 1. Minimally Invasive Coronary Artery Bypass Grafting x 1 (MIDCAB) with MOBLEY to LAD 2. Intercostal Nerve Block 06/28 Doing well transfer telemetry Likely D/C CT tomorrow Incentive spirometry 06/29 Doing well D/C CT today Lungs sound "junky" but not coughing up anything Aggressive pulmonary toiletry Ambulate 06/30. still has coarse cough, productive thick green brown sputum re-consult ID , still on po levaquin and Polo nebs worsening CXR still has elevated WBC Objective: Vital Signs Date Time Temp Pulse Resp B/P Pulse Ox O2 Delivery O2 Flow Rate FiO2 06/30/16 11:40 20 06/30/16 10:00 83 06/30/16 09:00 92 06/30/16 08:00 84 06/30/16 07:20 96 Nasal Cannula 2.00 06/30/16 07:00 96 Nasal Cannula 2.00 06/30/16 07:00 97.7 88 20 134/70 96 06/30/16 07:00 84 06/30/16 06:00 84 06/30/16 05:33 Nasal Cannula 2.00 06/30/16 05:00 84 06/30/16 04:27 92 Nasal Cannula 2.00 06/30/16 04:00 83 06/30/16 04:00 98.2 88 18 165/88 92 06/30/16 03:00 86 06/30/16 02:00 88 06/30/16 01:00 92 06/30/16 00:05 96 Room Air 06/30/16 00:00 98.1 86 18 130/68 96 06/30/16 00:00 89 06/29/16 23:00 86 06/29/16 22:00 90 06/29/16 21:00 86 06/29/16 20:00 89 06/29/16 20:00 98.2 92 18 119/71 94 06/29/16 19:25 95 21 06/29/16 19:00 92 06/29/16 19:00 96 Room Air 06/29/16 18:39 89 06/29/16 17:00 82 06/29/16 16:00 87 06/29/16 15:00 95 Room Air 06/29/16 15:00 84 06/29/16 15:00 97.9 85 17 121/69 94 06/29/16 14:00 87 06/29/16 13:00 81 Result Diagram: 06/29/16 0425 06/29/16 0425 (1) Coronary artery disease Plan: for surgery on Thursday (2) S/P CABG x 1 Plan: on BB, statin ASA , add low dose balbir % EF 40 pulm toileting ambulate (3) NSTEMI (non-ST elevated myocardial infarction) Plan: ASA, statin , BB , (4) COPD (chronic obstructive pulmonary disease) Plan: on symbicort , nebs , ezpap (5) Diabetes mellitus Plan: on diabetic diet , insulin sliding scale , HGB A1C 6.8 add metformin (6) PVD (peripheral vascular disease) Plan: on ASA, will need to resume plavix after surgery (7) Hyperlipemia Plan: on statin (8) Hypertension Plan: controlled, on BB , may need to add home cardizem (9) CKD (chronic kidney disease), stage II Plan: monitor closely, avoid nephrotoxins (10) Tracheobronchitis Plan: appreciate ID, on po levaquin, polo nebs leukocytosis, no fever worsening CXR , re-consult ID Lauren Juarez Jun 30, 2016 12:51
[2016-06-30] MEDS ORDERED: BISACODYL 10 MG SUPP RECTAL ONE (13:00)
--- NOTE | 2016-06-30 13:10 | HHI.FF ---
Face to Face Verification Diagnosis: (1) Hypertension (2) CKD (chronic kidney disease), stage II (3) NSTEMI (non-ST elevated myocardial infarction) (4) S/P CABG x 1 (5) COPD (chronic obstructive pulmonary disease) (6) Tracheobronchitis (7) Diabetes mellitus Home Health Nursing Order: Signs/symptoms of disease process Diabetic education Wound care and dressing changes Nursing assessment with vital signs Instructions: Incentive spirometry Q1 hr x 10, while awake, also use acapella device hourly whole awake Chest wall precautions NO pushing or pulling, ( pt must use chest pillow to support chest with all activities and with coughing Daily incision care: ok to shower daily, no tub bath. Wash all incisions with liquid dial soap, clean wash cloth to each site, rinse and pat dry. Observe for any signs of infection, such as drainage which is dark yellow, pulido, green or foul smelling. Immediately report to the surgeon any drainage from the chest incision, or legs, and for any abnormal drainage from the chest tube sites. Notify surgeon if any temp >101.5 degrees F. When specialty dressing removed/ or if you do not have one, continue to shower daily as above, then rinse and pat incision dry and paint with betadine daily x 5 days. Allow steri strips to fall off if you have any. Avoid lotions, creams, salves, oils, etc. for the first month F/U appointment: as per [place] instructions: PCP in 2 weeks, CV surgeon 2 weeks, Supply Cataloguer 3-4 weeks For any questions regarding incisions/ dressing / meds / post op care or above Symptoms, Thursday 8am-5pm Heart & Vascular Surgery Office ( Dr. Gan & Dr. Evans), After Hours / Nights (5pm -8am) Weekends and Holidays Please call [facility] Card[facility] ([facility]) Charge Nurse I have seen patient Hector Forbes on 06/30/16. My clinical findings support the need for the requested home health care services because: Deconditioned w/ increased weakness I certify that my clinical findings support that this patient is homebound because: Post-op weakness Lauren Juarez Jun 30, 2016 13:10
[2016-06-30] MEDS ORDERED: FUROSEMIDE 40 MG/4 ML VIAL IV PUSH ONE (13:15)
[2016-06-30] MEDS ORDERED: POTASSIUM CHLORIDE 10 MEQ CAP PO ONE (13:15)
[2016-06-30] MEDS: guaiFENesin E.R. 600 MG TAB PO SCH ×2 (14:32→21:20)
--- NOTE | 2016-06-30 15:56 | RADRPT ---
EXAM DATE/TIME: 06/30/2016 10:40 [facility] COMPARISON: CHEST SINGLE AP, June 28, 2016, 3:02. INDICATIONS : Shortness of breath. MEDICAL HISTORY : Chronic obstructive pulmonary disease. Gastroesophageal reflux disease. SURGICAL HISTORY : CABG. ENCOUNTER: Subsequent ACUITY: 1 week PAIN SCORE: 0/10 LOCATION: Bilateral chest FINDINGS: Today's examination demonstrates a moderate-sized effusion at the left base this is increased when co mpared to previous. There are atelectatic changes within the left lower lobe. There is minimal fluid seen at the right base. There is diffuse interstitial prominence. The heart is mildly enlarged. The exam could suggest mild c ongestive failure. Visualized bony structure are intact. CONCLUSION: 1. Increasing pleural effusion predominantly left-sided. Exam is concerning for congestive failure. Jak Bustamante MD on June 30, 2016 at 15:53 Board Certified Radiologist. This report was verified electronically.
[2016-06-30] MEDS: metFORMIN HCL 500 MG TAB PO SCH (18:00)
--- NOTE | 2016-06-30 19:06 | HHI.IDPN ---
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 Patient presented to [facility] with midsternal chest pain, and was ruled in for apparently a STEMI. Patient underwent a cardiac cath which showed with multivessel disease. Patient is underwent mini CABG He developped persistent cough a sputum was sent and grew Pseudomonas aeruginosa. No fevers No chills Cough with + expectoration. No hemoptysis Antibiotics Levaquin [place] nebs Lines Line sites with no e/o infection Past Medical History reviewed Allergies: Coded Allergies: No Known Allergies (Unverified , 06/23/16) Objective . Vital Signs Date Time Temp Pulse Resp B/P Pulse Ox O2 Delivery O2 Flow Rate FiO2 06/30/16 18:00 82 06/30/16 17:04 20 06/30/16 17:00 88 06/30/16 16:00 97.5 81 20 110/55 94 06/30/16 16:00 94 Room Air 06/30/16 16:00 78 06/30/16 15:00 76 06/30/16 14:00 67 06/30/16 13:00 72 06/30/16 12:00 76 06/30/16 11:00 96 Nasal Cannula 2.00 06/30/16 11:00 76 06/30/16 11:00 97.6 78 20 112/66 98 06/30/16 10:00 83 06/30/16 09:00 92 06/30/16 08:00 84 06/30/16 07:20 96 Nasal Cannula 2.00 06/30/16 07:00 96 Nasal Cannula 2.00 06/30/16 07:00 97.7 88 20 134/70 96 06/30/16 07:00 84 06/30/16 06:00 84 06/30/16 05:33 Nasal Cannula 2.00 06/30/16 05:00 84 06/30/16 04:27 92 Nasal Cannula 2.00 06/30/16 04:00 83 06/30/16 04:00 98.2 88 18 165/88 92 06/30/16 03:00 86 06/30/16 02:00 88 06/30/16 01:00 92 06/30/16 00:05 96 Room Air 06/30/16 00:00 98.1 86 18 130/68 96 06/30/16 00:00 89 06/29/16 23:00 86 06/29/16 22:00 90 06/29/16 21:00 86 06/29/16 20:00 89 06/29/16 20:00 98.2 92 18 119/71 94 06/29/16 19:25 95 21 06/29/16 06/29/16 06/30/16 15:00 23:00 07:00 Intake Total 1200 ml 240 ml Output Total 500 ml 450 ml Balance 700 ml -210 ml Intake Oral 1200 ml 240 ml Output Urine Total 500 ml 450 ml . Laboratory Tests Test 06/29/16 04:25 White Blood Count 16.0 TH/MM3 Red Blood Count 3.51 MIL/MM3 Hemoglobin 10.8 GM/DL Hematocrit 32.6 % Mean Corpuscular Volume 92.8 FL Mean Corpuscular Hemoglobin 30.8 PG Mean Corpuscular Hemoglobin 33.2 % Concent Red Cell Distribution Width 14.2 % Platelet Count 169 TH/MM3 Mean Platelet Volume 7.8 FL Neutrophils (%) (Auto) 86.3 % Lymphocytes (%) (Auto) 2.4 % Monocytes (%) (Auto) 10.8 % Eosinophils (%) (Auto) 0.3 % Basophils (%) (Auto) 0.2 % Neutrophils # (Auto) 13.8 TH/MM3 Lymphocytes # (Auto) 0.4 TH/MM3 Monocytes # (Auto) 1.7 TH/MM3 Eosinophils # (Auto) 0.0 TH/MM3 Basophils # (Auto) 0.0 TH/MM3 CBC Comment DIFF FINAL Differential Comment Laboratory Tests Test 06/29/16 04:25 Sodium Level 135 MEQ/L Potassium Level 4.3 MEQ/L Chloride Level 100 MEQ/L Carbon Dioxide Level 26.3 MEQ/L Anion Gap 9 MEQ/L Blood Urea Nitrogen 33 MG/DL Creatinine 1.17 MG/DL Estimat Glomerular Filtration 61 ML/MIN Rate Random Glucose 137 MG/DL Calcium Level 8.3 MG/DL Magnesium Level 2.2 MG/DL Imaging Last Impressions Chest X-Ray 06/30/16 0600 Signed Impressions: Service Date/Time: Thursday, June 30, 2016 10:40 - CONCLUSION: 1. Increasing pleural effusion predominantly left-sided. Exam is concerning for congestive failure. Jak Bustamante MD Lower Extremity Ultrasound 06/22/16 0000 Signed Impressions: Service Date/Time: Wednesday, June 22, 2016 19:14 - CONCLUSION: 1. Surgical removal of the greater saphenous veins. Gurpreet Velasquez MD Carotid Artery Ultrasound 06/22/16 0000 Signed Impressions: Service Date/Time: Wednesday, June 22, 2016 19:33 - CONCLUSION: 1. There is mild to moderate calcified plaque formation near the carotid bifurcations bilaterally. No hemodynamically significant stenosis is identified. Vertebral artery flow is antegrade bilaterally. Gurpreet Velasquez MD Physical Exam GENERAL: This is a well-nourished, well-developed patient, in no apparent distress. SKIN: No rashes, ecchymoses or lesions. Cool and dry. HEAD: Atraumatic. Normocephalic. No temporal or scalp tenderness. EYES: Pupils equal round and reactive. Extraocular motions intact. No scleral icterus. No injection or drainage. ENT: Nose without bleeding, purulent drainage or septal hematoma. Throat without erythema, tonsillar hypertrophy or exudate. Uvula midline. Airway patent. NECK: Trachea midline. Supple, nontender, no meningeal signs. CARDIOVASCULAR: HS audible. RRR Dressin in place L lower chest RESPIRATORY: Clear to auscultation. Breath sounds markedly diminishe on L base GASTROINTESTINAL: Abdomen soft, non-tender, nondistended. MUSCULOSKELETAL: No edema NEUROLOGICAL: Awake and alert. Grossly non focal Psych:cooperative IV line sites with no e.o infection. Assessment & Plan Remarks STEMI sp 1 Vessel CABG Pseudomonas aeruginosa in sputum previously treated with leva/tobra ? 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 PAD COPD stable. DM uncontrolled. HTN Recs: Continue Levaquin oral will treat a short 3-5 day based on clinical response. Continue Tobramycin nebulizations Add cefepime repeat sputum clx Procalcitonin low normal mild infection if at all. Follow clinically. Lupis Ramos MD Jun 30, 2016 19:06
[2016-06-30] MEDS: SENNOSIDES 8.6 MG TAB PO SCH (20:52)
[2016-06-30] MEDS: PRAVASTATIN SOD 40 MG TAB PO SCH (21:20)
[2016-06-30] MEDS: traZODone HCL 100 MG TAB PO SCH (21:20)
[2016-06-30] MEDS: CEFEPIME INJ 2,000 MG in SODIUM CHLORIDE 0.9% INJ 100 ML IV SCH (22:00)
[2016-06-30] MEDS: ZOLPIDEM TARTRATE 5 MG TAB PO PRN (22:50)
[2016-07-01] VITALS (27 sets, daily range): BP systolic 120–156; BP diastolic 44–81; PULSE 64–90; RESP 18–20; TEMP 97.6–98.4; O2SAT 93–96
[2016-07-01] MEDS: RESP: ALBUTEROL 2.5 MG/3 ML NEB (PRN) NEB ×3 (03:20→20:31)
[2016-07-01] MEDS: PANTOPRAZOLE SOD 40 MG DELAYED RELEASE TAB PO SCH (05:01)
[2016-07-01] MEDS: CEFEPIME INJ 2,000 MG in SODIUM CHLORIDE 0.9% INJ 100 ML IV SCH ×3 (05:01→20:00)
--- NOTE | 2016-07-01 05:52 | RADRPT ---
EXAM DATE/TIME: 07/01/2016 05:19 [facility] COMPARISON: CHEST SINGLE AP, June 28, 2016, 3:02. INDICATIONS : Short of breath. MEDICAL HISTORY : Chronic obstructive pulmonary disease. Gastroesophageal reflux disease. SURGICAL HISTORY : CABG. ENCOUNTER: Subsequent ACUITY: 1 week PAIN SCORE: Non-responsive. LOCATION: Bilateral chest FINDINGS: Right lung is clear. Cardiomegaly, left lower lobe consolidation and left effusion, increased from pr evious. CONCLUSION: Increasing left basilar consolidation and left effusion. Gerber Jung MD on July 01, 2016 at 5:50 Board Certified Radiologist. This report was verified electronically.
[2016-07-01] MEDS: INSULIN ASPART SUPPLEMENTAL SCALE SQ SCH ×4 (05:55→20:56)
[2016-07-01 06:30] LABS: AUTOMATED NEUTROPHIL # 10.1 TH/MM3 (1.8-7.7); BASOPHIL % 0.2 % (0.0-2.0); EOSINOPHIL # 0.2 TH/MM3 (0-0.4); EOSINOPHIL % 1.4 % (0.0-4.0); HEMO FLAGS DIFF FINAL; LYMPH % 4.7 % (9.0-44.0); LYMPHOCYTE # 0.6 TH/MM3 (1.0-4.8); MEAN CELL VOLUME 91.9 FL (80.0-100.0); MEAN CORPUSCULAR HEMOGLOBIN 31.3 PG (27.0-34.0); MONO % 9.7 % (0.0-8.0); PLATELET COUNT 172 TH/MM3 (150-450); RED BLOOD COUNT 3.49 MIL/MM3 (4.50-5.90); RED CELL DISTRIBUTION WIDTH 14.3 % (11.6-17.2)
[2016-07-01 06:57] LABS: BICARBONATE 26.9 MEQ/L (21.0-32.0); POTASSIUM 4.5 MEQ/L (3.5-5.1)
[2016-07-01] MEDS: RESP: TOBRAMYCIN SULFATE 80 MG/2 ML NEB NEB SCH ×2 (08:45→19:58)
[2016-07-01] MEDS: metFORMIN HCL 500 MG TAB PO SCH ×4 (09:00→17:08)
[2016-07-01] MEDS: MAGNESIUM HYDROXIDE SUSP 30 ML CUP PO SCH (09:00)
[2016-07-01] MEDS: ASPIRIN 81 MG CHEW TAB PO SCH (09:27)
[2016-07-01] MEDS: MULTIVITAMINS/MINERALS THERAPEUTIC TAB PO SCH (09:27)
[2016-07-01] MEDS: ACETAMINOPHEN/HYDROcodone 325 MG/5 MG TAB PO PRN ×3 (09:27→20:55)
[2016-07-01] MEDS: DOCUSATE SODIUM 100 MG CAP PO SCH ×2 (09:27→19:32)
[2016-07-01] MEDS: AMIODARONE 200 MG TAB PO SCH ×2 (09:28→20:55)
[2016-07-01] MEDS: CLOPIDOGREL 75 MG TAB PO SCH (09:29)
[2016-07-01] MEDS: METOPROLOL TARTRATE 25 MG TAB PO SCH ×2 (09:29→20:55)
[2016-07-01] MEDS: FERROUS SULFATE 325 MG (65 MG ELEMENTAL IRON) TAB PO SCH (09:29)
[2016-07-01] MEDS: guaiFENesin E.R. 600 MG TAB PO SCH ×2 (09:29→20:55)
[2016-07-01] MEDS: POLYETHYLENE GLYCOL 17 GM PKG PO SCH (09:31)
[2016-07-01] MEDS: SODIUM CHLORIDE 0.9% FLUSH 5 ML FLUSH IV FLUSH SCH ×2 (09:31→21:00)
[2016-07-01] MEDS: BUDESONIDE-FORMOTEROL 160/4.5 MCG INHALER INH SCH ×2 (09:31→20:56)
[2016-07-01] MEDS: DIFLUPREDNATE RIGHT EYE SCH ×2 (09:32→20:56)
[2016-07-01] MEDS: MOXIFLOXACIN 0.5% OPHT SOLN 3 ML BTL RIGHT EYE SCH ×4 (09:33→20:56)
--- NOTE | 2016-07-01 10:03 | PD.CAR.PN ---
CVT Progress Note CVT: POD #: 4 Subjective/Hospital Course: 75/ male NSTEMI transferred from [facility] / multi vessel disease EF 40 % , Last dose of Plavix 06/22 PRU this am 166. For surgery or Thursday . Pt has hx severe PAD multi stents, vascular surgery ( including fem-pop bypass) amputation of right 1,2, 5 toes ( seen by Dr Rondon in past) no conduit in lower ext for grafting has chronic cough past 6-12 months, on inhalers at home PMH : severe PAD, HLP, HTN, recent cataract surgery, DM Type 11 diet controlled , CKD stage 11, COPD( FEV1 1.03) insomnia , chronic anemia 06/24 on ASA, BB , stain , nitro ECHO noted EF 40% mild MR AI, TR remain s chest pain free 06/25 pt remains pain free await PRU in am tentatively scheduled for surgery on Monday 06/26 appreciate ID input on po levaquin and polo nebs, on room air normal WBC, procalcitonin unremarkable proceed with OR in am 06/27 SURGICAL PROCEDURE 1. Minimally Invasive Coronary Artery Bypass Grafting x 1 (MIDCAB) with MOBLEY to LAD 2. Intercostal Nerve Block 06/28 Doing well transfer telemetry Likely D/C CT tomorrow Incentive spirometry 06/29 Doing well D/C CT today Lungs sound "junky" but not coughing up anything Aggressive pulmonary toiletry Ambulate 06/30. still has coarse cough, productive thick green brown sputum re-consult ID , still on po levaquin and Polo nebs worsening CXR still has elevated WBC 07/01 pt feels better, cough improved WBC improved, appreciate ID input will need guidance for oral discharge antibiotics / possible dc in am if ok with ID he will need lan specialist Objective: GENERAL: SKIN: Warm and dry./ incision intact left chest wall HEAD: Normocephalic. EYES: No scleral icterus. No injection or drainage. NECK: Supple, trachea midline. No JVD or lymphadenopathy. CARDIOVASCULAR: Regular rate and rhythm without murmurs, gallops, or rubs. RESPIRATORY: few coarse breath sound, improving Breath sounds equal bilaterally. No accessory muscle use. GASTROINTESTINAL: Abdomen soft, non-tender, nondistended. MUSCULOSKELETAL: No cyanosis, or edema. BACK: Nontender without obvious deformity. No CVA tenderness. Vital Signs Date Time Temp Pulse Resp B/P Pulse Ox O2 Delivery O2 Flow Rate FiO2 07/01/16 08:48 93 21 07/01/16 08:00 94 Room Air 07/01/16 08:00 72 07/01/16 08:00 88 07/01/16 07:45 98.1 88 20 137/44 94 07/01/16 07:00 75 07/01/16 06:00 70 07/01/16 05:00 71 07/01/16 04:00 97.9 79 18 121/65 95 07/01/16 04:00 74 07/01/16 04:00 94 Room Air 07/01/16 03:00 71 07/01/16 02:00 82 07/01/16 01:00 81 07/01/16 00:01 94 Room Air 07/01/16 00:00 98.1 82 20 156/81 95 07/01/16 00:00 80 06/30/16 23:00 80 06/30/16 22:00 88 06/30/16 21:00 90 06/30/16 20:20 92 Nasal Cannula 06/30/16 20:02 94 Room Air 06/30/16 20:00 92 06/30/16 20:00 98.0 90 20 131/70 95 06/30/16 19:00 74 06/30/16 18:00 82 06/30/16 17:04 20 06/30/16 17:00 88 06/30/16 16:00 97.5 81 20 110/55 94 06/30/16 16:00 94 Room Air 06/30/16 16:00 78 06/30/16 15:00 76 06/30/16 14:00 67 06/30/16 13:00 72 06/30/16 12:00 76 06/30/16 11:00 96 Nasal Cannula 2.00 06/30/16 11:00 76 06/30/16 11:00 97.6 78 20 112/66 98 06/30/16 10:00 83 Labs: Laboratory Tests Test 07/01/16 06:06 White Blood Count 12.0 TH/MM3 (4.0-11.0) Red Blood Count 3.49 MIL/MM3 (4.50-5.90) Hemoglobin 10.9 GM/DL (13.0-17.0) Hematocrit 32.0 % (39.0-51.0) Mean Corpuscular Volume 91.9 FL (80.0-100.0) Mean Corpuscular Hemoglobin 31.3 PG (27.0-34.0) Mean Corpuscular Hemoglobin 34.0 % Concent (32.0-36.0) Red Cell Distribution Width 14.3 % (11.6-17.2) Platelet Count 172 TH/MM3 (150-450) Mean Platelet Volume 8.0 FL (7.0-11.0) Neutrophils (%) (Auto) 84.0 % (16.0-70.0) Lymphocytes (%) (Auto) 4.7 % (9.0-44.0) Monocytes (%) (Auto) 9.7 % (0.0-8.0) Eosinophils (%) (Auto) 1.4 % (0.0-4.0) Basophils (%) (Auto) 0.2 % (0.0-2.0) Neutrophils # (Auto) 10.1 TH/MM3 (1.8-7.7) Lymphocytes # (Auto) 0.6 TH/MM3 (1.0-4.8) Monocytes # (Auto) 1.2 TH/MM3 (0-0.9) Eosinophils # (Auto) 0.2 TH/MM3 (0-0.4) Basophils # (Auto) 0.0 TH/MM3 (0-0.2) CBC Comment DIFF FINAL Differential Comment Sodium Level 133 MEQ/L (136-145) Potassium Level 4.5 MEQ/L (3.5-5.1) Chloride Level 99 MEQ/L (98-107) Carbon Dioxide Level 26.9 MEQ/L (21.0-32.0) Anion Gap 7 MEQ/L (5-15) Blood Urea Nitrogen 35 MG/DL (7-18) Creatinine 1.23 MG/DL (0.60-1.30) Estimat Glomerular Filtration 57 ML/MIN (>89) Rate Random Glucose 153 MG/DL (74-106) Calcium Level 8.3 MG/DL (8.5-10.1) Result Diagram: 07/01/1660507/01/16605 Telemetry: NSr (1) Coronary artery disease Plan: on ASA, plavix, statin , BB ambulate pulm toileting (2) S/P CABG x 1 Plan: on BB, statin ASA , add low dose balbir % EF 40 (3) NSTEMI (non-ST elevated myocardial infarction) Plan: ASA, statin , BB , (4) COPD (chronic obstructive pulmonary disease) Plan: on symbicort , nebs , ezpap (5) Diabetes mellitus Plan: on diabetic diet , insulin sliding scale , HGB A1C 6.8 metformin will need BGM machine at home lan specialist (6) PVD (peripheral vascular disease) Plan: on ASA, will need to resume plavix after surgery (7) Hyperlipemia Plan: on statin (8) Hypertension Plan: controlled, on BB , (9) CKD (chronic kidney disease), stage II Plan: monitor closely, avoid nephrotoxins (10) Tracheobronchitis Plan: appreciate ID, on po levaquin, polo nebs leukocytosis, no fever worsening CXR , re-consult ID Lauren Juarez Jul 01, 2016 10:03
--- NOTE | 2016-07-01 15:58 | HHI.IDPN ---
Subjective Subjective Remarks feels better Repeat sputum cl result noted GNB on the Gstain, but growing just nl resp marita so far afebrile Antibiotics Levaquin [place] nebs cefepime Lines Line sites with no e/o infection Past Medical History reviewed Allergies: Coded Allergies: No Known Allergies (Unverified , 06/23/16) Objective . Vital Signs Date Time Temp Pulse Resp B/P Pulse Ox O2 Delivery O2 Flow Rate FiO2 07/01/16 15:21 98.0 79 18 121/62 95 07/01/16 15:20 95 Room Air 07/01/16 15:00 90 07/01/16 14:00 68 07/01/16 13:54 20 07/01/16 13:00 80 07/01/16 12:33 70 07/01/16 12:00 98.4 88 20 120/58 94 07/01/16 11:11 95 Room Air 07/01/16 11:00 64 07/01/16 10:00 82 07/01/16 09:00 84 07/01/16 08:48 93 21 07/01/16 08:00 94 Room Air 07/01/16 08:00 72 07/01/16 08:00 88 07/01/16 07:45 98.1 88 20 137/44 94 07/01/16 07:00 75 07/01/16 06:00 70 07/01/16 05:00 71 07/01/16 04:00 97.9 79 18 121/65 95 07/01/16 04:00 74 07/01/16 04:00 94 Room Air 07/01/16 03:00 71 07/01/16 02:00 82 07/01/16 01:00 81 07/01/16 00:01 94 Room Air 07/01/16 00:00 98.1 82 20 156/81 95 07/01/16 00:00 80 06/30/16 23:00 80 06/30/16 22:00 88 06/30/16 21:00 90 06/30/16 20:20 92 Nasal Cannula 06/30/16 20:02 94 Room Air 06/30/16 20:00 92 06/30/16 20:00 98.0 90 20 131/70 95 06/30/16 19:00 74 06/30/16 18:00 82 06/30/16 17:00 88 06/30/16 16:00 97.5 81 20 110/55 94 06/30/16 16:00 94 Room Air 06/30/16 16:00 78 06/30/16 06/30/16 07/01/16 15:00 23:00 07:00 Intake Total 930 ml 240 ml Output Total 1550 ml 550 ml Balance -620 ml -310 ml Intake Oral 930 ml 240 ml Output Urine Total 1550 ml 550 ml # Bowel Movements 0 3 . Laboratory Tests Test 07/01/16 06:06 White Blood Count 12.0 TH/MM3 Red Blood Count 3.49 MIL/MM3 Hemoglobin 10.9 GM/DL Hematocrit 32.0 % Mean Corpuscular Volume 91.9 FL Mean Corpuscular Hemoglobin 31.3 PG Mean Corpuscular Hemoglobin 34.0 % Concent Red Cell Distribution Width 14.3 % Platelet Count 172 TH/MM3 Mean Platelet Volume 8.0 FL Neutrophils (%) (Auto) 84.0 % Lymphocytes (%) (Auto) 4.7 % Monocytes (%) (Auto) 9.7 % Eosinophils (%) (Auto) 1.4 % Basophils (%) (Auto) 0.2 % Neutrophils # (Auto) 10.1 TH/MM3 Lymphocytes # (Auto) 0.6 TH/MM3 Monocytes # (Auto) 1.2 TH/MM3 Eosinophils # (Auto) 0.2 TH/MM3 Basophils # (Auto) 0.0 TH/MM3 CBC Comment DIFF FINAL Differential Comment Laboratory Tests Test 07/01/16 06:06 Sodium Level 133 MEQ/L Potassium Level 4.5 MEQ/L Chloride Level 99 MEQ/L Carbon Dioxide Level 26.9 MEQ/L Anion Gap 7 MEQ/L Blood Urea Nitrogen 35 MG/DL Creatinine 1.23 MG/DL Estimat Glomerular Filtration 57 ML/MIN Rate Random Glucose 153 MG/DL Calcium Level 8.3 MG/DL Microbiology Date/Time Procedure Status Source Growth 06/30/16 21:27 Gram Stain - Final Resulted Sputum Expectorated Sputum 06/30/16 21:27 Sputum Culture - Preliminary Resulted Sputum Expectorated Sputum HEAVY GROWTH NORMAL RESPIRATORY MARITA... Imaging Last Impressions Chest X-Ray 07/01/16 0600 Signed Impressions: Service Date/Time: Friday, July 01, 2016 05:19 - CONCLUSION: Increasing left basilar consolidation and left effusion. Gerber Jung MD Lower Extremity Ultrasound 06/22/16 0000 Signed Impressions: Service Date/Time: Wednesday, June 22, 2016 19:14 - CONCLUSION: 1. Surgical removal of the greater saphenous veins. Gurpreet Velasquez MD Carotid Artery Ultrasound 06/22/16 0000 Signed Impressions: Service Date/Time: Wednesday, June 22, 2016 19:33 - CONCLUSION: 1. There is mild to moderate calcified plaque formation near the carotid bifurcations bilaterally. No hemodynamically significant stenosis is identified. Vertebral artery flow is antegrade bilaterally. Gurpreet Velasquez MD Physical Exam GENERAL: This is a well-nourished, well-developed patient, in no apparent distress. SKIN: No rashes, ecchymoses or lesions. Cool and dry. CARDIOVASCULAR: HS audible. RRR Dressin in place L lower chest RESPIRATORY: Clear to auscultation. Breath sounds abscent on L base GASTROINTESTINAL: Abdomen soft, non-tender, moderately distended. MUSCULOSKELETAL: + trace edema Saphenectomy site jhealing NEUROLOGICAL: Awake and alert. Grossly non focal Psych:cooperative IV line sites with no e.o infection. Assessment & Plan Remarks STEMI sp 1 Vessel CABG Pseudomonas aeruginosa in sputum previously treated with leva/tobra ? 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 PAD COPD stable. DM uncontrolled. HTN Recs: Continue Levaquin oral will treat a short 3-5 day based on clinical response. Continue Tobramycin nebulizations cont cefepime fu repeat sputum clx; will give final rec's per repeat sputum clx Follow clinically. repeat CXR to assess L side effusion in 1-2 days Lupis Ramos MD Jul 01, 2016 15:58
[2016-07-01] MEDS: SENNOSIDES 8.6 MG TAB PO SCH (19:32)
[2016-07-01] MEDS: PRAVASTATIN SOD 40 MG TAB PO SCH (20:55)
[2016-07-01] MEDS: traZODone HCL 100 MG TAB PO SCH (20:55)
[2016-07-01] MEDS: ZOLPIDEM TARTRATE 5 MG TAB PO PRN (23:31)
[2016-07-02] VITALS (26 sets, daily range): BP systolic 118–141; BP diastolic 57–68; PULSE 63–86; RESP 16–18; TEMP 97.7–98.8; O2SAT 95–99
[2016-07-02] MEDS: CEFEPIME INJ 2,000 MG in SODIUM CHLORIDE 0.9% INJ 100 ML IV SCH ×3 (02:43→20:00)
[2016-07-02] MEDS: PANTOPRAZOLE SOD 40 MG DELAYED RELEASE TAB PO SCH (05:53)
[2016-07-02] MEDS: ACETAMINOPHEN/HYDROcodone 325 MG/5 MG TAB PO PRN ×3 (05:54→23:40)
[2016-07-02] MEDS: INSULIN ASPART SUPPLEMENTAL SCALE SQ SCH ×4 (05:54→21:00)
[2016-07-02 06:15] LABS: AUTOMATED NEUTROPHIL # 7.7 TH/MM3 (1.8-7.7); BASOPHIL # 0.1 TH/MM3 (0-0.2); BASOPHIL % 0.6 % (0.0-2.0); EOSINOPHIL # 0.3 TH/MM3 (0-0.4); EOSINOPHIL % 2.9 % (0.0-4.0); HEMATOCRIT 33.5 % (39.0-51.0); HEMO FLAGS DIFF FINAL; LYMPH % 5.8 % (9.0-44.0); LYMPHOCYTE # 0.6 TH/MM3 (1.0-4.8); MEAN CELL VOLUME 92.5 FL (80.0-100.0); MEAN CORPUSCULAR HEMOGLOBIN 30.2 PG (27.0-34.0); MEAN CORPUSCULAR HGB CONC 32.7 % (32.0-36.0); MONO % 9.9 % (0.0-8.0); NEUT % 80.8 % (16.0-70.0); PLATELET COUNT 172 TH/MM3 (150-450); RED BLOOD COUNT 3.62 MIL/MM3 (4.50-5.90); RED CELL DISTRIBUTION WIDTH 14.4 % (11.6-17.2); WHITE BLOOD COUNT 9.5 TH/MM3 (4.0-11.0)
[2016-07-02 06:36] LABS: BICARBONATE 27.2 MEQ/L (21.0-32.0); POTASSIUM 4.6 MEQ/L (3.5-5.1)
[2016-07-02] MEDS: RESP: TOBRAMYCIN SULFATE 80 MG/2 ML NEB NEB SCH ×2 (07:34→20:00)
[2016-07-02] MEDS: POLYETHYLENE GLYCOL 17 GM PKG PO SCH (09:00)
[2016-07-02] MEDS: DOCUSATE SODIUM 100 MG CAP PO SCH (09:00)
[2016-07-02] MEDS: MAGNESIUM HYDROXIDE SUSP 30 ML CUP PO SCH (09:00)
[2016-07-02] MEDS: METOPROLOL TARTRATE 25 MG TAB PO SCH ×2 (09:03→22:00)
[2016-07-02] MEDS: ASPIRIN 81 MG CHEW TAB PO SCH (09:03)
[2016-07-02] MEDS: guaiFENesin E.R. 600 MG TAB PO SCH ×2 (09:04→22:00)
[2016-07-02] MEDS: metFORMIN HCL 500 MG TAB PO SCH ×2 (09:04→17:39)
[2016-07-02] MEDS: CLOPIDOGREL 75 MG TAB PO SCH (09:04)
[2016-07-02] MEDS: FERROUS SULFATE 325 MG (65 MG ELEMENTAL IRON) TAB PO SCH (09:04)
[2016-07-02] MEDS: AMIODARONE 200 MG TAB PO SCH ×2 (09:04→22:00)
[2016-07-02] MEDS: MULTIVITAMINS/MINERALS THERAPEUTIC TAB PO SCH (09:04)
[2016-07-02] MEDS: SODIUM CHLORIDE 0.9% FLUSH 5 ML FLUSH IV FLUSH SCH ×2 (09:05→22:01)
[2016-07-02] MEDS: DIFLUPREDNATE RIGHT EYE SCH ×2 (09:06→21:00)
[2016-07-02] MEDS: BUDESONIDE-FORMOTEROL 160/4.5 MCG INHALER INH SCH ×2 (09:06→21:00)
[2016-07-02] MEDS: MOXIFLOXACIN 0.5% OPHT SOLN 3 ML BTL RIGHT EYE SCH ×4 (09:06→21:00)
[2016-07-02] MEDS ORDERED: DOCUSATE SODIUM 100 MG CAP PO PRN (14:00)
--- NOTE | 2016-07-02 14:02 | PD.CAR.PN ---
CVT Progress Note Subjective/Hospital Course: 75/ male NSTEMI transferred from [facility] / multi vessel disease EF 40 % , Last dose of Plavix 06/22 PRU this am 166. For surgery or Thursday . Pt has hx severe PAD multi stents, vascular surgery ( including fem-pop bypass) amputation of right 1,2, 5 toes ( seen by Dr Rondon in past) no conduit in lower ext for grafting has chronic cough past 6-12 months, on inhalers at home PMH : severe PAD, HLP, HTN, recent cataract surgery, DM Type 11 diet controlled , CKD stage 11, COPD( FEV1 1.03) insomnia , chronic anemia 06/24 on ASA, BB , stain , nitro ECHO noted EF 40% mild MR AI, TR remain s chest pain free 06/25 pt remains pain free await PRU in am tentatively scheduled for surgery on Monday 06/26 appreciate ID input on po levaquin and polo nebs, on room air normal WBC, procalcitonin unremarkable proceed with OR in am 06/27 SURGICAL PROCEDURE 1. Minimally Invasive Coronary Artery Bypass Grafting x 1 (MIDCAB) with MOBLEY to LAD 2. Intercostal Nerve Block 06/28 Doing well transfer telemetry Likely D/C CT tomorrow Incentive spirometry 06/29 Doing well D/C CT today Lungs sound "junky" but not coughing up anything Aggressive pulmonary toiletry Ambulate 06/30. still has coarse cough, productive thick green brown sputum re-consult ID , still on po levaquin and Polo nebs worsening CXR still has elevated WBC 07/01 pt feels better, cough improved WBC improved, appreciate ID input will need guidance for oral discharge antibiotics / possible dc in am if ok with ID he will need research aide 07/02 pt had 3 large loose watery stools last pm check stool for cdiff, WBC improving leukocytosis improving , await ID input on home antibiotic regimen eval for dc in am / f/u CXR in am Objective: GENERAL: SKIN: Warm and dry./ incision intact and well approximated to left chest HEAD: Normocephalic. EYES: No scleral icterus. No injection or drainage. NECK: Supple, trachea midline. No JVD or lymphadenopathy. CARDIOVASCULAR: Regular rate and rhythm without murmurs, gallops, or rubs. RESPIRATORY: lung sounds improved , Breath sounds equal bilaterally. No accessory muscle use. GASTROINTESTINAL: Abdomen soft, non-tender, nondistended. MUSCULOSKELETAL: No cyanosis, or edema. BACK: Nontender without obvious deformity. No CVA tenderness. Vital Signs Date Time Temp Pulse Resp B/P Pulse Ox O2 Delivery O2 Flow Rate FiO2 07/02/16 11:15 97 Room Air 07/02/16 11:15 98.5 63 16 119/63 97 07/02/16 08:11 97.7 68 16 122/67 97 07/02/16 08:11 97 Room Air 07/02/16 07:36 95 21 07/02/16 06:00 68 07/02/16 05:00 67 07/02/16 04:00 68 07/02/16 04:00 97.7 76 18 137/63 95 07/02/16 03:50 96 Room Air 07/02/16 03:00 67 07/02/16 02:00 70 07/02/16 01:00 64 07/02/16 00:02 96 Room Air 07/02/16 00:00 98.0 77 18 122/62 96 07/02/16 00:00 66 07/01/16 23:00 64 07/01/16 22:00 78 07/01/16 21:00 86 07/01/16 20:00 94 Room Air 07/01/16 20:00 97.6 90 18 155/74 96 07/01/16 20:00 21 07/01/16 20:00 88 07/01/16 19:00 88 07/01/16 17:00 78 07/01/16 16:00 72 07/01/16 15:21 98.0 79 18 121/62 95 07/01/16 15:20 95 Room Air 07/01/16 15:00 90 07/01/16 14:00 68 07/01/16 13:54 20 Labs: Laboratory Tests Test 07/02/16 05:21 White Blood Count 9.5 TH/MM3 (4.0-11.0) Red Blood Count 3.62 MIL/MM3 (4.50-5.90) Hemoglobin 10.9 GM/DL (13.0-17.0) Hematocrit 33.5 % (39.0-51.0) Mean Corpuscular Volume 92.5 FL (80.0-100.0) Mean Corpuscular Hemoglobin 30.2 PG (27.0-34.0) Mean Corpuscular Hemoglobin 32.7 % Concent (32.0-36.0) Red Cell Distribution Width 14.4 % (11.6-17.2) Platelet Count 172 TH/MM3 (150-450) Mean Platelet Volume 8.0 FL (7.0-11.0) Neutrophils (%) (Auto) 80.8 % (16.0-70.0) Lymphocytes (%) (Auto) 5.8 % (9.0-44.0) Monocytes (%) (Auto) 9.9 % (0.0-8.0) Eosinophils (%) (Auto) 2.9 % (0.0-4.0) Basophils (%) (Auto) 0.6 % (0.0-2.0) Neutrophils # (Auto) 7.7 TH/MM3 (1.8-7.7) Lymphocytes # (Auto) 0.6 TH/MM3 (1.0-4.8) Monocytes # (Auto) 0.9 TH/MM3 (0-0.9) Eosinophils # (Auto) 0.3 TH/MM3 (0-0.4) Basophils # (Auto) 0.1 TH/MM3 (0-0.2) CBC Comment DIFF FINAL Differential Comment Sodium Level 135 MEQ/L (136-145) Potassium Level 4.6 MEQ/L (3.5-5.1) Chloride Level 100 MEQ/L (98-107) Carbon Dioxide Level 27.2 MEQ/L (21.0-32.0) Anion Gap 8 MEQ/L (5-15) Blood Urea Nitrogen 34 MG/DL (7-18) Creatinine 1.11 MG/DL (0.60-1.30) Estimat Glomerular Filtration 64 ML/MIN (>89) Rate Random Glucose 129 MG/DL (74-106) Calcium Level 8.1 MG/DL (8.5-10.1) Result Diagram: 07/02/1652007/02/16520 EKG: NSR (1) Coronary artery disease Plan: on ASA, plavix, statin , BB ambulate pulm toileting (2) S/P CABG x 1 Plan: on BB, statin ASA , add low dose balbir % EF 40 (3) NSTEMI (non-ST elevated myocardial infarction) Plan: ASA, statin , BB , (4) COPD (chronic obstructive pulmonary disease) Plan: on symbicort , nebs , ezpap (5) Diabetes mellitus Plan: on diabetic diet , insulin sliding scale , HGB A1C 6.8 metformin will need BGM machine at home research aide (6) PVD (peripheral vascular disease) Plan: on ASA, plavix (7) Hyperlipemia Plan: on statin (8) Hypertension Plan: controlled, on BB , (9) CKD (chronic kidney disease), stage II Plan: monitor closely, avoid nephrotoxins (10) Tracheobronchitis Plan: appreciate ID, on IV cefepime , , polo nebs leukocytosis improving , no fever 3 liguid stools, GI motility meds dc check stool for cdiLauren Diamond Jul 02, 2016 14:02
[2016-07-02] MEDS ORDERED: GLUCTES12 (14:08)
[2016-07-02] MEDS ORDERED: LANCETS1 MI1 (14:08)
[2016-07-02] MEDS ORDERED: GLUCKIT15 (14:08)
[2016-07-02] MEDS: PRAVASTATIN SOD 40 MG TAB PO SCH (22:00)
[2016-07-02] MEDS: traZODone HCL 100 MG TAB PO SCH (22:00)
[2016-07-02] MEDS: SENNOSIDES 8.6 MG TAB PO SCH (22:01)
[2016-07-02] MEDS: ZOLPIDEM TARTRATE 5 MG TAB PO PRN (23:41)
[2016-07-03] VITALS (24 sets, daily range): BP systolic 116–152; BP diastolic 56–67; PULSE 60–82; RESP 18–26; TEMP 97.7–98.4; O2SAT 96–98
[2016-07-03] MEDS: CEFEPIME INJ 2,000 MG in SODIUM CHLORIDE 0.9% INJ 100 ML IV SCH ×3 (04:07→20:14)
[2016-07-03] MEDS: PANTOPRAZOLE SOD 40 MG DELAYED RELEASE TAB PO SCH (04:27)
[2016-07-03 06:48] LABS: AUTOMATED NEUTROPHIL # 7.4 TH/MM3 (1.8-7.7); BASOPHIL # 0.1 TH/MM3 (0-0.2); BASOPHIL % 0.7 % (0.0-2.0); EOSINOPHIL # 0.3 TH/MM3 (0-0.4); EOSINOPHIL % 3.5 % (0.0-4.0); HEMATOCRIT 31.9 % (39.0-51.0); HEMO FLAGS DIFF FINAL; LYMPH % 6.8 % (9.0-44.0); LYMPHOCYTE # 0.6 TH/MM3 (1.0-4.8); MEAN CELL VOLUME 92.9 FL (80.0-100.0); MEAN CORPUSCULAR HEMOGLOBIN 30.5 PG (27.0-34.0); MEAN CORPUSCULAR HGB CONC 32.8 % (32.0-36.0); MONO % 10.6 % (0.0-8.0); NEUT % 78.4 % (16.0-70.0); PLATELET COUNT 182 TH/MM3 (150-450); RED BLOOD COUNT 3.44 MIL/MM3 (4.50-5.90); RED CELL DISTRIBUTION WIDTH 14.4 % (11.6-17.2); WHITE BLOOD COUNT 9.5 TH/MM3 (4.0-11.0)
[2016-07-03] MEDS: INSULIN ASPART SUPPLEMENTAL SCALE SQ SCH ×5 (07:00→22:05)
[2016-07-03] MEDS: MAGNESIUM HYDROXIDE SUSP 30 ML CUP PO SCH (09:00)
--- NOTE | 2016-07-03 09:46 | RADRPT ---
EXAM DATE/TIME: 07/03/2016 09:28 [place] COMPARISON: CHEST SINGLE AP, July 01, 2016, 5:19. CHEST PA & LAT, June 30, 2016, 10:40. INDICATIONS : Short of breath. MEDICAL HISTORY : Chronic obstructive pulmonary disease. SURGICAL HISTORY : CABG. ENCOUNTER: Initial ACUITY: 1 week PAIN SCORE: 0/10 LOCATION: Bilateral chest FINDINGS: PA and lateral views of the chest demonstrate persistent left basilar consolidation/effusion with mil d atelectatic changes of the right hemidiaphragm. No significant change from prior. Heart size border line. Degenerative spurring of the dorsal spine. Osseous structures are otherwise intact. CONCLUSION: 1. Persistent left basilar consolidation/effusion with mild atelectatic changes of the right hemidiap hragm. 2. No significant change from prior. Josue Robison MD on July 03, 2016 at 9:41 Board Certified Radiologist. This report was verified electronically.
[2016-07-03] MEDS: RESP: ALBUTEROL 2.5 MG/3 ML NEB (PRN) NEB ×2 (09:54→17:55)
[2016-07-03] MEDS: FERROUS SULFATE 325 MG (65 MG ELEMENTAL IRON) TAB PO SCH (10:09)
[2016-07-03] MEDS: ASPIRIN 81 MG CHEW TAB PO SCH (10:09)
[2016-07-03] MEDS: guaiFENesin E.R. 600 MG TAB PO SCH ×2 (10:09→22:04)
[2016-07-03] MEDS: AMIODARONE 200 MG TAB PO SCH ×2 (10:09→22:04)
[2016-07-03] MEDS: CLOPIDOGREL 75 MG TAB PO SCH (10:09)
[2016-07-03] MEDS: BUDESONIDE-FORMOTEROL 160/4.5 MCG INHALER INH SCH ×2 (10:11→22:04)
[2016-07-03] MEDS: DIFLUPREDNATE RIGHT EYE SCH ×2 (10:12→22:07)
[2016-07-03] MEDS: SODIUM CHLORIDE 0.9% FLUSH 5 ML FLUSH IV FLUSH SCH ×2 (10:12→22:05)
[2016-07-03] MEDS: POLYETHYLENE GLYCOL 17 GM PKG PO SCH (10:52)
[2016-07-03] MEDS: METOPROLOL TARTRATE 25 MG TAB PO SCH ×2 (10:52→22:04)
[2016-07-03] MEDS: MULTIVITAMINS/MINERALS THERAPEUTIC TAB PO SCH (10:52)
[2016-07-03] MEDS: metFORMIN HCL 500 MG TAB PO SCH ×2 (10:52→18:24)
[2016-07-03] MEDS: MOXIFLOXACIN 0.5% OPHT SOLN 3 ML BTL RIGHT EYE SCH ×4 (10:53→21:00)
--- NOTE | 2016-07-03 14:41 | PD.CAR.PN ---
CVT Progress Note CVT: POD #: 6 Subjective/Hospital Course: 75/ male NSTEMI transferred from [facility] / multi vessel disease EF 40 % , Last dose of Plavix 06/22 PRU this am 166. For surgery or Thursday . Pt has hx severe PAD multi stents, vascular surgery ( including fem-pop bypass) amputation of right 1,2, 5 toes ( seen by Dr Rondon in past) no conduit in lower ext for grafting has chronic cough past 6-12 months, on inhalers at home PMH : severe PAD, HLP, HTN, recent cataract surgery, DM Type 11 diet controlled , CKD stage 11, COPD( FEV1 1.03) insomnia , chronic anemia 06/24 on ASA, BB , stain , nitro ECHO noted EF 40% mild MR AI, TR remain s chest pain free 06/25 pt remains pain free await PRU in am tentatively scheduled for surgery on Monday 06/26 appreciate ID input on po levaquin and polo nebs, on room air normal WBC, procalcitonin unremarkable proceed with OR in am 06/27 SURGICAL PROCEDURE 1. Minimally Invasive Coronary Artery Bypass Grafting x 1 (MIDCAB) with MOBLEY to LAD 2. Intercostal Nerve Block 06/28 Doing well transfer telemetry Likely D/C CT tomorrow Incentive spirometry 06/29 Doing well D/C CT today Lungs sound "junky" but not coughing up anything Aggressive pulmonary toiletry Ambulate 06/30. still has coarse cough, productive thick green brown sputum re-consult ID , still on po levaquin and Polo nebs worsening CXR still has elevated WBC 07/01 pt feels better, cough improved WBC improved, appreciate ID input will need guidance for oral discharge antibiotics / possible dc in am if ok with ID he will need health promotion educator 07/02 pt had 3 large loose watery stools last pm check stool for cdiff, WBC improving leukocytosis improving , await ID input on home antibiotic regimen eval for dc in am / f/u CXR in am 07/03 CXR noted, small left effusion, with consolidation/ improving on room air discussed with Dr Meier , will continue cefepime until tomorrow she will then decide on po discharge antibiotics Objective: GENERAL: SKIN: Warm and dry./ incision intact and well approximated to left chest HEAD: Normocephalic. EYES: No scleral icterus. No injection or drainage. NECK: Supple, trachea midline. No JVD or lymphadenopathy. CARDIOVASCULAR: Regular rate and rhythm without murmurs, gallops, or rubs. RESPIRATORY: diminished left lower lobe , Breath sounds equal bilaterally. No accessory muscle use. GASTROINTESTINAL: Abdomen soft, non-tender, nondistended. MUSCULOSKELETAL: No cyanosis, or edema. BACK: Nontender without obvious deformity. No CVA tenderness. Vital Signs Date Time Temp Pulse Resp B/P Pulse Ox O2 Delivery O2 Flow Rate FiO2 07/03/16 14:05 64 07/03/16 13:21 67 07/03/16 12:00 67 07/03/16 11:03 Room Air 07/03/16 11:03 97.7 76 18 142/62 97 07/03/16 11:00 76 07/03/16 09:59 96 21 07/03/16 08:23 62 07/03/16 07:45 97.8 75 18 126/56 96 07/03/16 07:45 Room Air 07/03/16 06:29 73 07/03/16 05:00 69 07/03/16 04:00 98.1 72 18 116/63 96 07/03/16 04:00 72 07/03/16 04:00 96 Room Air 07/03/16 02:00 62 07/03/16 01:00 65 07/03/16 00:00 60 07/02/16 23:00 98.8 71 16 130/66 99 07/02/16 23:00 70 07/02/16 23:00 99 Room Air 07/02/16 22:00 67 07/02/16 21:00 72 07/02/16 19:00 98.6 70 18 141/68 98 07/02/16 19:00 71 07/02/16 19:00 98 Room Air 07/02/16 18:00 76 07/02/16 17:00 70 07/02/16 16:00 70 07/02/16 16:00 97.7 68 18 118/57 97 07/02/16 16:00 97 Room Air 07/02/16 15:00 69 Labs: Laboratory Tests Test 07/03/16 06:11 White Blood Count 9.5 TH/MM3 (4.0-11.0) Red Blood Count 3.44 MIL/MM3 (4.50-5.90) Hemoglobin 10.5 GM/DL (13.0-17.0) Hematocrit 31.9 % (39.0-51.0) Mean Corpuscular Volume 92.9 FL (80.0-100.0) Mean Corpuscular Hemoglobin 30.5 PG (27.0-34.0) Mean Corpuscular Hemoglobin 32.8 % Concent (32.0-36.0) Red Cell Distribution Width 14.4 % (11.6-17.2) Platelet Count 182 TH/MM3 (150-450) Mean Platelet Volume 7.9 FL (7.0-11.0) Neutrophils (%) (Auto) 78.4 % (16.0-70.0) Lymphocytes (%) (Auto) 6.8 % (9.0-44.0) Monocytes (%) (Auto) 10.6 % (0.0-8.0) Eosinophils (%) (Auto) 3.5 % (0.0-4.0) Basophils (%) (Auto) 0.7 % (0.0-2.0) Neutrophils # (Auto) 7.4 TH/MM3 (1.8-7.7) Lymphocytes # (Auto) 0.6 TH/MM3 (1.0-4.8) Monocytes # (Auto) 1.0 TH/MM3 (0-0.9) Eosinophils # (Auto) 0.3 TH/MM3 (0-0.4) Basophils # (Auto) 0.1 TH/MM3 (0-0.2) CBC Comment DIFF FINAL Differential Comment Result Diagram: 07/03/16 0611 07/02/16 0521 (1) Coronary artery disease Plan: on ASA, plavix, statin , BB ambulate pulm toileting (2) S/P CABG x 1 Plan: on BB, statin ASA , add low dose balbir % EF 40 (3) NSTEMI (non-ST elevated myocardial infarction) Plan: ASA, statin , BB , (4) COPD (chronic obstructive pulmonary disease) Plan: on symbicort , nebs , ezpap (5) Diabetes mellitus Plan: on diabetic diet , insulin sliding scale , HGB A1C 6.8 metformin will need BGM machine at home health promotion educator (6) PVD (peripheral vascular disease) Plan: on ASA, plavix (7) Hyperlipemia Plan: on statin (8) Hypertension Plan: controlled, on BB , (9) CKD (chronic kidney disease), stage II Plan: monitor closely, avoid nephrotoxins (10) Tracheobronchitis Plan: continue cefepime, ID will eval in am for discharge antibiotics Lauren Juarez Jul 03, 2016 14:41
[2016-07-03] MEDS: traZODone HCL 100 MG TAB PO SCH (22:03)
[2016-07-03] MEDS: PRAVASTATIN SOD 40 MG TAB PO SCH (22:04)
[2016-07-03] MEDS: SENNOSIDES 8.6 MG TAB PO SCH (22:04)
[2016-07-03] MEDS: ZOLPIDEM TARTRATE 5 MG TAB PO PRN (23:48)
[2016-07-04] VITALS (19 sets, daily range): BP systolic 117–138; BP diastolic 49–66; PULSE 62–79; RESP 18; TEMP 97.8–98.3; O2SAT 95–98
[2016-07-04] MEDS: CEFEPIME INJ 2,000 MG in SODIUM CHLORIDE 0.9% INJ 100 ML IV SCH ×2 (03:35→12:48)
[2016-07-04] MEDS: INSULIN ASPART SUPPLEMENTAL SCALE SQ SCH ×2 (06:25→12:47)
[2016-07-04] MEDS: PANTOPRAZOLE SOD 40 MG DELAYED RELEASE TAB PO SCH (06:25)
[2016-07-04] MEDS: MAGNESIUM HYDROXIDE SUSP 30 ML CUP PO SCH (09:00)
--- NOTE | 2016-07-04 09:19 | PQ ---
Physician Query Response Document PATIENT: VIOLETA SAINI : 1940 ADMIT DATE: 06/22/2016 4:21 PM DISCH DATE: RESPONDING PROVIDER #: [email or web address] QUERY TEXT: Conflicting Documentation Clarification A single mention or documentation of multiple diagnoses for the same clinical presentation appears in the record. Please clarify the diagnosis/diagnoses. 1) STEMI 2) NON-STEMI 3) OTHER, PLEASE CLARIFY ALSO PLEASE DOCUMENT IF THE FL OCCURRED WITHIN 28 DAYS OF ADMISSION PLEASE CALL KATHERINE IN [facility] @ EXT [phone] FOR ASSISTANCE- THANK YOU The patient's Clinical Indicators include: PER H PATIENT PRESENT TO [facility] WHER HE WAS RULED IN FOR APPARENT STEMI PER PROGRESS NOTES 06/26/16: (2) NSTEMI (non-ST elevated myocardial infarction) Plan: ASA, statin , BB , nitro Query created by: Katherine Nelson on 06/26/2016 2:53 PM RESPONSE TEXT: Initially thought to be STEMI but was changed to NSTEMI upon transfer. Electronically signed by: Stephany Gan MD 07/04/2016 9:15 AM
--- NOTE | 2016-07-04 09:20 | RSPPFT ---
DATE OF PROCEDURE: 06/22/16 COMMENTS: Spirometry with FVC of 1.6, FEV1 of 1.0, FEV1/FVC ratio 63%. IMPRESSION: 1. Severe airways obstruction.
[2016-07-04] MEDS: ASPIRIN 81 MG CHEW TAB PO SCH (09:40)
[2016-07-04] MEDS: CLOPIDOGREL 75 MG TAB PO SCH (09:40)
[2016-07-04] MEDS: AMIODARONE 200 MG TAB PO SCH (09:40)
[2016-07-04] MEDS: MULTIVITAMINS/MINERALS THERAPEUTIC TAB PO SCH (09:40)
[2016-07-04] MEDS: guaiFENesin E.R. 600 MG TAB PO SCH (09:40)
[2016-07-04] MEDS: FERROUS SULFATE 325 MG (65 MG ELEMENTAL IRON) TAB PO SCH (09:40)
[2016-07-04] MEDS: metFORMIN HCL 500 MG TAB PO SCH (09:40)
[2016-07-04] MEDS: METOPROLOL TARTRATE 25 MG TAB PO SCH (09:40)
[2016-07-04] MEDS: POLYETHYLENE GLYCOL 17 GM PKG PO SCH (09:41)
[2016-07-04] MEDS: MOXIFLOXACIN 0.5% OPHT SOLN 3 ML BTL RIGHT EYE SCH ×2 (09:42→13:10)
[2016-07-04] MEDS: DIFLUPREDNATE RIGHT EYE SCH (09:42)
[2016-07-04] MEDS: BUDESONIDE-FORMOTEROL 160/4.5 MCG INHALER INH SCH (09:42)
[2016-07-04] MEDS: SODIUM CHLORIDE 0.9% FLUSH 5 ML FLUSH IV FLUSH SCH (09:43)
[2016-07-04 11:01] LABS: C. DIFF EPI 027 PRESUMPTIVE NEGATIVE (NEGATIVE); C. DIFF TOXIN PCR NEGATIVE (NEGATIVE)
--- NOTE | 2016-07-04 13:36 | HHI.IDPN ---
Subjective Subjective Remarks pt is doing dramatically better sinc started on cefepime He is brething better he has no fever and his WBC is back to nl Antibiotics [place] nebs cefepime Lines Line sites with no e/o infection Past Medical History reviewed Allergies: Coded Allergies: No Known Allergies (Unverified , 06/23/16) Objective . Vital Signs Date Time Temp Pulse Resp B/P Pulse Ox O2 Delivery O2 Flow Rate FiO2 07/04/16 13:03 66 07/04/16 12:02 68 07/04/16 11:54 97.8 68 18 138/65 97 07/04/16 11:54 97 Room Air 07/04/16 11:12 62 07/04/16 10:00 70 07/04/16 09:00 78 07/04/16 08:39 76 07/04/16 07:42 98 Room Air 07/04/16 07:42 98.2 77 18 134/66 98 07/04/16 07:19 96 21 07/04/16 07:15 78 07/04/16 06:28 79 07/04/16 05:18 70 07/04/16 04:04 73 07/04/16 03:20 97 Room Air 07/04/16 03:20 98.3 68 18 117/49 95 07/04/16 03:20 72 07/04/16 02:02 65 07/04/16 01:00 62 07/04/16 00:00 73 07/03/16 23:00 73 07/03/16 23:00 97.7 63 26 129/62 97 07/03/16 23:00 97 Room Air 07/03/16 22:00 72 07/03/16 21:00 82 07/03/16 20:00 80 07/03/16 19:00 77 07/03/16 19:00 98.3 80 18 152/67 96 07/03/16 19:00 96 Room Air 07/03/16 18:23 80 07/03/16 17:22 98 21 07/03/16 17:22 69 07/03/16 16:10 68 07/03/16 15:24 98 Room Air 07/03/16 15:24 98.4 69 18 132/63 98 07/03/16 15:00 67 07/03/16 14:05 64 07/03/16 13:21 67 07/03/16 07/03/16 07/04/16 15:00 23:00 07:00 Intake Total 460 ml 456 ml Output Total 500 ml 200 ml Balance -40 ml 256 ml Intake Oral 360 ml 240 ml IV Total 100 ml 216 ml Output Urine Total 500 ml 200 ml # Bowel Movements 0 0 . Laboratory Tests Test 07/03/16 06:11 White Blood Count 9.5 TH/MM3 Red Blood Count 3.44 MIL/MM3 Hemoglobin 10.5 GM/DL Hematocrit 31.9 % Mean Corpuscular Volume 92.9 FL Mean Corpuscular Hemoglobin 30.5 PG Mean Corpuscular Hemoglobin 32.8 % Concent Red Cell Distribution Width 14.4 % Platelet Count 182 TH/MM3 Mean Platelet Volume 7.9 FL Neutrophils (%) (Auto) 78.4 % Lymphocytes (%) (Auto) 6.8 % Monocytes (%) (Auto) 10.6 % Eosinophils (%) (Auto) 3.5 % Basophils (%) (Auto) 0.7 % Neutrophils # (Auto) 7.4 TH/MM3 Lymphocytes # (Auto) 0.6 TH/MM3 Monocytes # (Auto) 1.0 TH/MM3 Eosinophils # (Auto) 0.3 TH/MM3 Basophils # (Auto) 0.1 TH/MM3 CBC Comment DIFF FINAL Differential Comment Imaging Last Impressions Chest X-Ray 07/03/16 0800 Signed Impressions: Service Date/Time: June 09:28 - CONCLUSION: 1. Persistent left basilar consolidation/effusion with mild atelectatic changes of the right hemidiaphragm. 2. No significant change from prior. Josue Robison MD Lower Extremity Ultrasound 06/22/16 0000 Signed Impressions: Service Date/Time: Wednesday, June 22, 2016 19:14 - CONCLUSION: 1. Surgical removal of the greater saphenous veins. Gurpreet Velasquez MD Carotid Artery Ultrasound 06/22/16 0000 Signed Impressions: Service Date/Time: Wednesday, June 22, 2016 19:33 - CONCLUSION: 1. There is mild to moderate calcified plaque formation near the carotid bifurcations bilaterally. No hemodynamically significant stenosis is identified. Vertebral artery flow is antegrade bilaterally. Gurpreet Velasquez MD Physical Exam GENERAL: This is a well-nourished, well-developed patient, in no apparent distress. SKIN: No rashes, ecchymoses or lesions. Cool and dry. CARDIOVASCULAR: HS audible. RRR RESPIRATORY: Clear to auscultation. Breath sounds abscent on L base; better in other lug kam GASTROINTESTINAL: Abdomen soft, non-tender, moderately distended. MUSCULOSKELETAL: + trace edema Saphenectomy site jhealing NEUROLOGICAL: Awake and alert. Grossly non focal Psych:cooperative IV line sites with no e.o infection. Assessment & Plan Remarks STEMI sp 1 Vessel CABG Pseudomonas aeruginosa in sputum previously treated with leva/tobra - improved clinically with abx - He was initially on levaquine x 5 days, then changted to cefepime and cilnically imptoved - S to levaquin, tobra - repeat sputum clx is with nl resp marita ? 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 PAD COPD stable. DM uncontrolled. HTN Recs: OK to dc home Rx with Levaquine 750 mg po daily x 5 more days to complete 14 day course of abx Lupis Kate RN, MD Jul 04, 2016 13:36
[2016-07-04] MEDS ORDERED: DOCU1CAP39 PO (16:25)
[2016-07-04] MEDS ORDERED: AMIO200T PO (16:25)
[2016-07-04] MEDS ORDERED: THERM PO (16:25)
[2016-07-04] MEDS ORDERED: PLAV75TA29 PO (16:25)
[2016-07-04] MEDS ORDERED: METF500 PO (16:25)
[2016-07-04] MEDS ORDERED: MUCI600T PO (16:25)
[2016-07-04] MEDS ORDERED: LEVA750T PO (16:25)
[2016-07-04] MEDS ORDERED: METO25TA3 PO (16:25)
--- NOTE | 2016-07-04 16:45 | HHI.DS ---
Discharge Summary Admission Date Jun 22, 2016 at 16:21 Discharge Date: Jul 04, 2016 Admitting Diagnosis chest pain , CAD (1) COPD (chronic obstructive pulmonary disease) Diagnosis: Principal (2) Coronary artery disease Diagnosis: Principal (3) Hyperlipemia Diagnosis: Principal (4) PVD (peripheral vascular disease) Diagnosis: Principal (5) Hypertension Diagnosis: Principal (6) CKD (chronic kidney disease), stage II (7) NSTEMI (non-ST elevated myocardial infarction) Diagnosis: Secondary (8) Tracheobronchitis Diagnosis: Principal (9) Diabetes mellitus Diagnosis: Principal (10) S/P CABG x 1 Diagnosis: Secondary Procedures 1. Minimally Invasive Coronary Artery Bypass Grafting x 1 (MIDCAB) with MOBLEY to LAD 2. Intercostal Nerve Block 06/27/16 Brief History 75/ male NSTEMI transferred from [facility] [place] / multi vessel disease EF 40 % , Last dose of Plavix 06/22 PRU this am 166. For surgery or Thursday . Pt has hx severe PAD multi stents, vascular surgery ( including fem-pop bypass) amputation of right 1,2, 5 toes ( seen by Dr Rondon in past) no conduit in lower ext for grafting has chronic cough past 6-12 months, on inhalers at home PMH : severe PAD, HLP, HTN, recent cataract surgery, DM Type 11 diet controlled , CKD stage 11, COPD( FEV1 1.03) insomnia , chronic anemia CBC/BMP: 07/03/16 0611 07/02/16 0521 Significant Findings Laboratory Tests Test 07/02/16 07/03/16 05:21 06:11 Red Blood Count 3.62 MIL/MM3 3.44 MIL/MM3 (4.50-5.90) (4.50-5.90) Hemoglobin 10.9 GM/DL 10.5 GM/DL (13.0-17.0) (13.0-17.0) Hematocrit 33.5 % 31.9 % (39.0-51.0) (39.0-51.0) Neutrophils (%) (Auto) 80.8 % 78.4 % (16.0-70.0) (16.0-70.0) Lymphocytes (%) (Auto) 5.8 % 6.8 % (9.0-44.0) (9.0-44.0) Monocytes (%) (Auto) 9.9 % (0.0-8.0) 10.6 % (0.0-8.0) Lymphocytes # (Auto) 0.6 TH/MM3 0.6 TH/MM3 (1.0-4.8) (1.0-4.8) Sodium Level 135 MEQ/L (136-145) Blood Urea Nitrogen 34 MG/DL (7-18) Estimat Glomerular Filtration 64 ML/MIN (>89) Rate Random Glucose 129 MG/DL (74-106) Calcium Level 8.1 MG/DL (8.5-10.1) Monocytes # (Auto) 1.0 TH/MM3 (0-0.9) Imaging Last Impressions Chest X-Ray 07/03/16 0800 Signed Impressions: Service Date/Time: June 09:28 - CONCLUSION: 1. Persistent left basilar consolidation/effusion with mild atelectatic changes of the right hemidiaphragm. 2. No significant change from prior. Josue Robison MD Lower Extremity Ultrasound 06/22/16 0000 Signed Impressions: Service Date/Time: Wednesday, June 22, 2016 19:14 - CONCLUSION: 1. Surgical removal of the greater saphenous veins. Gurpreet Velasquez MD Carotid Artery Ultrasound 06/22/16 0000 Signed Impressions: Service Date/Time: Wednesday, June 22, 2016 19:33 - CONCLUSION: 1. There is mild to moderate calcified plaque formation near the carotid bifurcations bilaterally. No hemodynamically significant stenosis is identified. Vertebral artery flow is antegrade bilaterally. Gurpreet Velasquez MD PE at Discharge GENERAL: SKIN: Warm and dry./ incision intact left chest area / mild redness to prior chest tube head of precision targeting: Normocephalic. EYES: No scleral icterus. No injection or drainage. NECK: Supple, trachea midline. No JVD or lymphadenopathy. CARDIOVASCULAR: Regular rate and rhythm without murmurs, gallops, or rubs. RESPIRATORY: Breath sounds equal bilaterally. No accessory muscle use. few scattered rhonchi GASTROINTESTINAL: Abdomen soft, non-tender, nondistended. MUSCULOSKELETAL: No cyanosis, or edema. BACK: Nontender without obvious deformity. No CVA tenderness. Hospital Course 06/24 on ASA, BB , stain , nitro ECHO noted EF 40% mild MR AI, TR remain s chest pain free 3/15 pt remains pain free await PRU in am tentatively scheduled for surgery on Monday 06/26 appreciate ID input on po levaquin and ryland nebs, on room air normal WBC, procalcitonin unremarkable proceed with OR in am 06/27 SURGICAL PROCEDURE 1. Minimally Invasive Coronary Artery Bypass Grafting x 1 (MIDCAB) with MOBLEY to LAD 2. Intercostal Nerve Block 06/28 Doing well transfer telemetry Likely D/C CT tomorrow Incentive spirometry 06/29 Doing well D/C CT today Lungs sound "junky" but not coughing up anything Aggressive pulmonary toiletry Ambulate 06/30. still has coarse cough, productive thick green brown sputum re-consult ID , still on po levaquin and R[place] nebs worsening CXR still has elevated WBC 07/01 pt feels better, cough improved WBC improved, appreciate ID input will need guidance for oral discharge antibiotics / possible dc in am if ok with ID he will need environmental educator 07/02 pt had 3 large loose watery stools last pm check stool for cdiff, WBC improving leukocytosis improving , await ID input on home antibiotic regimen eval for dc in am / f/u CXR in am 07/03 CXR noted, small left effusion, with consolidation/ improving on room air discussed with Dr Meier , will continue cefepime until tomorrow she will then decide on po discharge antibiotics 07/04 on room air, feels better will continue 5 day course of levaquin at home dc today f/u CXR in one week f/u in our office 2 weeks Pt Condition on Discharge: Good Discharge Disposition: Disch w/ Home Health Serv Discharge Instructions DIET: Follow Instructions for: Diabetic Diet Activities you can perform: Full Weight Bearing, Shower Only-No Bath Activities to avoid: Strenuous Activity, Driving Additional Activity Instructio: no lifting > 8 lbs Follow up Referrals: Cardiology PCP Follow-up with [facility] New Orders: X-RAY CHEST PA & LAT - 1 Week New Medications: Blood Glucose Monitoring W/Device (Glucocom Blood Glucose Mo W/Device) 1 Kit Kit 1 KIT .ROUTE DIRECTED Blood Sugar Management #1 KIT Glucocom Test Strips (Glucocom Test Strips) 1 Patricia Patricia 1 EA .ROUTE DIRECTED check bgm before breakfast and dinner Blood Sugar Management #60 BOX Lancets (Lancets) 1 Mis Mis 1 EA .ROUTE DIRECTED bid before breakfast and dinner Blood Sugar Management #1 Ref 1 BOX Levofloxacin (Levaquin) 750 Mg Tab 750 MG PO DAILY Infection #5 Ref 0 TAB Amiodarone (Amiodarone) 200 Mg Tab 200 MG PO Q12HR heart rhythm #28 Ref 0 TAB Clopidogrel (Plavix) 75 Mg Tab 75 MG PO DAILY Blood Clot Prevention #30 Ref 2 TAB Docusate Sodium (Dok) 100 Mg Cap 100 MG PO BID PRN CONSTIPATION #60 Ref 0 CAP Guaifenesin ER 12 HR (Mucinex ER 12 HR) 600 Mg Renetta 600 MG PO BID Cough #30 Ref 0 TAB Metformin (Glucophage) 500 Mg Tab 500 MG PO BIDPC Blood Sugar Management #60 Ref 2 TAB Metoprolol Tartrate (Metoprolol Tartrate) 25 Mg Tab 25 MG PO Q12HR Blood Pressure Management #60 Ref 2 TAB Multiple Vitamins W/ Minerals (Thera M Plus) 1 Tab 1 TAB PO DAILY multi vitamin #30 Ref 0 TAB Continued Medications: Albuterol 18 GM Inh (Ventolin Hfa 18 GM Inh) 90 Mcg/Act Aer 2 PUFF INH TID SHORTNESS OF BREATH #1 Ref 0 INHALER Albuterol Neb (Albuterol Neb) 2.5 Mg/3 Ml Neb 2.5 MG NEB BID PRN SHORTNESS OF BREATH #1 Ref 0 NEBULE Aspirin (Aspirin Low Dose) 81 Mg Chew 81 MG CHEW DAILY Ref 0 TAB Budesonide-Formoterol Inh (Symbicort Inh) 160-4.5 Mcg/Act Aero 2 PUFF INH Q12HR #1 Ref 0 INHALER Difluprednate Opth (Durezol Opth) 0.05% Emul 1 DROP RIGHT EYE BID Famotidine (Famotidine) 40 Mg Tab 40 MG PO DAILY #60 Ref 0 TAB Ferrous Sulfate (Ferrous Sulfate) 325 Mg Tab 325 MG PO DAILY Nutritional Supplement #30 Ref 0 TAB Fluticasone Propionate (Nasal) (Allergy Nasal [place] 24 Ho) 50 Mcg/Act Spr 1 SPRAY NA DAILY Hydrocodone-Acetaminophen (Hydrocodone-Acetaminophen) 5-325 mg Tab 1 TAB PO Q6H PRN PAIN Ref 0 TAB Ipratropium-Albuterol Neb (Duoneb) 0.5-2.5 Mg/3 Ml Neb 1 NEBULE INH Q6HR NEB PRN SHORTNESS OF BREATH #120 Ref 0 NEBULE Moxifloxacin Opth Drops (Vigamox Opth Drops) 0.5 % Soln 1 DROP RIGHT EYE BID Infection #1 Ref 0 BOTTLE Pravastatin (Pravastatin) 40 Mg Tab 40 MG PO DAILY Cholesterol Management #30 Ref 0 TAB Trazodone HCl (Trazodone HCl) 100 Mg Tab TAB PO HS PRN SLEEP Discontinued Medications: Clopidogrel (Plavix) 75 Mg Tab 75 MG PO DAILY Blood Clot Prevention #30 Ref 0 TAB Diltiazem CD 24 HR (Diltiazem CD 24 HR) 240 Mg Caper 240 MG PO DAILY #30 Ref 0 CAP Docusate Sodium (Stool Softener) 100 Mg Cap Temazepam (Temazepam) 30 Mg Cap 30 MG PO HS PRN SLEEP #30 Ref 0 CAP Zolpidem (Zolpidem) 5 Mg Tab 5 MG PO HS PRN INSOMNIA Ref 0 TAB Lauren Juarez Jul 04, 2016 16:44
== END 2016-07-04 18:17 | disposition home health service (06) | DRG 235 ==
LOC: HCIS 16:21 → HCVR 06-27 13:16 → HCIN 06-28 16:37
PROVIDERS: ADMIT Thoracic Surgery (Cardiothoracic Vascular Surgery); ATTEND Thoracic Surgery (Cardiothoracic Vascular Surgery)
PROC: 03B10ZZ Excision of Left Internal Mammary Artery, Open Approach (ICD-10-PCS; 2016-06-27)
PROC: 3E0T3CZ (ICD-10-PCS; 2016-06-27)
PROC: 02100Z9 Bypass Coronary Artery, One Artery from Left Internal Mammary, Open Approach (ICD-10-PCS; principal; 2016-06-27 07:15)
DX: I25.10 Atherosclerotic heart disease of native coronary artery without angina pectoris (principal); I21.4 Non-ST elevation (NSTEMI) myocardial infarction; E11.22 Type 2 diabetes mellitus with diabetic chronic kidney disease; J98.11 Atelectasis; J44.9 Chronic obstructive pulmonary disease, unspecified; E11.65 Type 2 diabetes mellitus with hyperglycemia; I73.9 Peripheral vascular disease, unspecified; I12.9 Hypertensive chronic kidney disease with stage 1 through stage 4 chronic kidney disease, or unspecified chronic kidney disease; N18.2 Chronic kidney disease, stage 2 (mild); K21.9 Gastro-esophageal reflux disease without esophagitis; I65.23 Occlusion and stenosis of bilateral carotid arteries; I08.3 Combined rheumatic disorders of mitral, aortic and tricuspid valves; E78.5 Hyperlipidemia, unspecified; N40.0 Benign prostatic hyperplasia without lower urinary tract symptoms; B96.5 Pseudomonas (aeruginosa) (mallei) (pseudomallei) as the cause of diseases classified elsewhere; Z86.14 Personal history of Methicillin resistant Staphylococcus aureus infection; Z86.718 Personal history of other venous thrombosis and embolism; Z87.891 Personal history of nicotine dependence; Z89.429 Acquired absence of other toe(s), unspecified side
CPT/HCPCS: 36430; 71010; 71020; 76937; 80048; 80076; 81001; 82948; 83036; 83735; 84145; 85025; 85027; 85576; 85610; 85730; 86850; 86900; 86901; 86920; 87070; 87077; 87186; 87205; 87493; 87641; 93005; 93306; 93318; 93880; 93970; 93998; 94002; 94010; 94150; 94640; 94664; 94667; 94668; C1768; J0131; J0690; J0692; J1644; J1815; J1940; J2250; J2405; J2440; J2720; J3010; J3370; J3475; J3480; J7030; J7040; J7050; J7120; J7613; J7685; P9016